=== PATIENT | male | born 1975 | race Caucasian/White ===

== ENCOUNTER 2021-09-23 06:01 | Outpatient (REF) | payer OTHER, SELFPAY ==
[2021-09-23 06:09] LABS: MANUAL DIFF FLAG NO
[2021-09-23 07:52] LABS: Basophils Percent Auto 0.4 % (0-2); Eosinophils Absolute Auto 0.2 X10*3/uL (0.0-0.4); Hematocrit 44.1 % (42.0-52.0); Hemoglobin 14.5 g/dl (14.0-18.0); Imm Gran Abs Auto 0.03 X10*3/uL (0.00-0.03); Imm Gran Pct Auto 0.4 % (0.0-0.4); Lymphocytes Absolute Auto 2.8 X10*3/uL (1.2-4.9); Lymphocytes Percent Auto 34.6 % (20-40); Mean Corpuscular HGB Conc 32.9 g/dl (31.0-36.0); Mean Corpuscular Volume 85.3 fL (80.0-98.0); Mean Platelet Volume 10.5 fL (9.4-12.4); Monocytes Absolute Auto 0.6 X10*3/uL (0.1-1.2); Monocytes Percent Auto 7.9 % (2-11); Neutrophils Absolute Auto 4.3 x10*3/uL (2.0-8.3); Neutrophils Percent Auto 53.7 % (45-73); Platelet Count 276 X10*3/uL (160-400); Red Blood Count 5.17 X10*6/uL (4.60-5.80); Red Cell Distribution Width 13.5 % (11.0-16.0); White Blood Count 7.9 X10*3/uL (4.8-10.8)
[2021-09-23 08:23] LABS: Alanine Aminotransferase 21 U/L (0-40); Albumin Level 4.6 g/dL (3.5-5.0); Alkaline Phosphatase 75 U/L (39-117); Anion Gap 12 (12-20); Aspartate Amino Transferase 18 U/L (5-37); Bilirubin Total 0.8 mg/dL (0.0-1.0); Blood Urea Nitrogen 10 mg/dL (9-16); Calcium 9.5 mg/dL (8.4-10.2); Carbon Dioxide 27 mmol/L (22-29); Chloride 104 mmol/L (96-108); Cholesterol 183 mg/dL; Estimated Glomerular Filt Rate > 60; Glucose Fasting 92 mg/dL (60-99); HDL Cholesterol 41 mg/dL; LDL Cholesterol Calculated 128 mg/dl; Potassium 4.2 mmol/L (3.3-5.1); Sodium 139 mmol/L (135-145); Total Protein 7.4 g/dL (6.5-8.0); Triglycerides 71 mg/dL
== END 2021-09-23 06:02 | disposition home or self-care (01) ==
LOC: HO.LAB 06:01
PROVIDERS: PCP Internal Medicine; Visit Provider Internal Medicine
DX: Z00.00 Encounter for general adult medical examination without abnormal findings (principal)
CPT/HCPCS: 36415; 80053; 80061; 85025

== ENCOUNTER 2022-03-17 10:34 | Outpatient (REF) | payer OTHER, SELFPAY ==
--- NOTE | ~2022-03-17 | CT_ITS ---
EXAMINATION: CT ANGIOGRAM BRAIN, HEAD CLINICAL INFORMATION: Family history of brain aneurysm. COMPARISON: None available TECHNIQUE: Test bolus sequences followed by intravenous administration 70 mL of Omnipaque 350 intravenous contrast. Helical imaging was performed in the axial plane from the skull base to the vertex. Delayed postcontrast imaging of the head was also performed. The data was processed at the nanotechnology engineering technologist workstation for generation of MIP sequences. Three-dimensional volume rendered reformatted images were also generated at an offline 3-D workstation. The degree of stenosis determined by NASCET criteria. This CT examination was performed using dose optimization techniques as appropriate, variously including the following: *Automated exposure control *Adjustment of mA and/or kV according to patient size (this includes techniques or standardized protocols for targeted exams where dose is matched to indication/reason for exam; i.e. extremities or head) *Use of iterative reconstruction technique FINDINGS: The anterior and posterior intracranial arterial circulations are widely patent. No aneurysms and no high flow vascular malformations. There is no pathologic enhancement intracranially. There is no intracranial hemorrhage, hydrocephalus, extra-axial surface collection, midline shift, or other herniation pattern. Calle to white matter differentiation is diffusely maintained without evidence of an evolved acute territorial infarct. The basilar cisterns are preserved. No significant soft tissue abnormality. No acute osseous abnormality. The paranasal sinuses and the mastoid air cells are well aerated. CT/CT angio head IMPRESSION: Unremarkable CTA of the head. No aneurysms.
[2022-03-17] MEDS: iohexoL 350 MG/ML 100 ML INFUS..BTL IV (11:46)
== END 2022-03-17 10:35 | disposition home or self-care (01) ==
LOC: HO.CT 10:34
PROVIDERS: Visit Provider Internal Medicine
DX: Z13.6 Encounter for screening for cardiovascular disorders (principal); Z82.49 Family history of ischemic heart disease and other diseases of the circulatory system
CPT/HCPCS: 70496; Q9967

== ENCOUNTER 2022-03-31 08:28 | Day surgery (SDC) | payer OTHER, SELFPAY ==
--- NOTE | 2022-03-30 13:15 | HO.ANESPROP2 ---
Documented by User: Bertha Francis NP 03/30/22 13:19 HPI - Anesthesia Eval Consult details Narrative: 46yo M for Upper Endoscopy with balloon diliation and Colonoscopy [facility] Past Medical History Medical History (Updated 03/30/22 @ 13:17 by Bertha Francis NP) GERD (gastroesophageal reflux disease) Social History Social History Patient Tobacco Use Status: Never used Tobacco Use of substances other than those prescribed or required for medical reasons: No Are you DNR?: No Advance Directives: No Advance Directives Information Provided: Yes Meds Allergies Allergy/AdvReac Type Severity Reaction Status Date / Time tree nut Allergy Anaphylaxis Verified 03/31/22 08:51 Home Medications Medication Instructions Recorded Confirmed Last Taken Type Zyrtec See Rx Instructions .Route .COMPLEX 03/30/22 03/31/22 Unknown History clonazepam 1 mg tablet 1 tab PO BEDTIME PRN Insomnia 03/30/22 03/30/22 Unknown History omeprazole 40 mg capsule,delayed 1 cap PO DAILY 03/30/22 03/30/22 Unknown History release Exam Exam Date and Time: March 30, [id number] Assessment and Plan Assessment Anesthesia Assessment: Chart Reviewed Documented by User: Mane Mendoza MD 03/31/22 13:23 [facility] Past Medical History Medical History (Updated 03/30/22 @ 13:17 by Bertha Francis NP) GERD (gastroesophageal reflux disease) Functional capacity: independent ambulation Family History Family history of problems with anesthesia: No Surgical History History of Problems with Anesthesia: No Social History Social History Patient Tobacco Use Status: Never used Tobacco Use of substances other than those prescribed or required for medical reasons: No Are you DNR?: No Advance Directives: No Advance Directives Information Provided: Yes Meds Allergies Allergy/AdvReac Type Severity Reaction Status Date / Time tree nut Allergy Anaphylaxis Verified 03/31/22 08:51 Home Medications Medication Instructions Recorded Confirmed Last Taken Type Zyrtec See Rx Instructions .Route .COMPLEX 03/30/22 03/31/22 Unknown History clonazepam 1 mg tablet 1 tab PO BEDTIME PRN Insomnia 03/30/22 03/30/22 Unknown History omeprazole 40 mg capsule,delayed 1 cap PO DAILY 03/30/22 03/30/22 Unknown History release Exam Airway Mallampati Class: III TM Dist: >3cm Neck ROM: Full Loose/Missing/Broken Teeth: Yes (Chipped front upper .) Heart: S1,S2 Lungs: b/l breath sounds Assessment and Plan Assessment Anesthesia Assessment: Anesthesia Plan Discussed Final Anesthetic Review Family History of Problems with Anesthesia: No History of Problems with Anesthesia: No NPO: Yes ASA Class: II Final Preanesthetic Review: Meds/Allgs Chart Reviewed, Consent Obtained/Reviewed and Anes Risks/Benef Reviewed Patient Risk: Intermediate Procedure Risk: Intermediate Anesthetic Plan Anesthetic Plan: MAC: Disposition: Standard PACU
[2022-03-31 08:43] VITALS: BMI 32.5
[2022-03-31 09:30] VITALS: BP 138/98; PULSE 79; RESP 18; TEMP 36.7; O2SAT 96
[2022-03-31] MEDS: Lactated Ringers 1,000 ML 100 ML IVCONT (09:32)
[2022-03-31 12:05] VITALS: BP 113/79; PULSE 89; RESP 17; TEMP 37.4; O2SAT 96
--- NOTE | 2022-03-31 12:06 | P.BOP_ITS ---
Brief Operative Note Date of Service: 03/31/22 Pre-op diagnosis: Dysphagia, Screening Post-op diagnosis: other (Colon polyps, Mild distal esophageal stricture, Small hiatal hernia, R/O EoE) Procedure: EGD with Balloon dilation and biopsies, Colonoscopy to the cecum with bx/removal of polyps x 2 and hot snare polypectomy of rectal polyp Surgeon: Lalit Simms Anesthesia: MAC Was an Subway Conductor used for this Procedure?: No Estimated blood loss (mL): 2.0 Pathology: other (A. Esophagus at 25cm B. Ascending colon polyp C. Transverse colon polyp D. Rectal polyp) Condition: stable Disposition: PACU
[2022-03-31 12:20] VITALS: BP 125/93; PULSE 83; RESP 18; TEMP 36.8; O2SAT 98
--- NOTE | 2022-03-31 23:28 | OP_ITS ---
SURGEON: Lalit Simms MD INDICATIONS: The patient presents for evaluation of dysphagia and colorectal cancer screening. Full consent has been obtained from him for this, including risks of bleeding and perforation. PREOPERATIVE DIAGNOSIS: POSTOPERATIVE DIAGNOSIS: PROCEDURE PERFORMED: Esophagogastroduodenoscopy with balloon dilation of gastroesophageal junction and biopsies and colonoscopy to the cecum and terminal ileum with biopsy and removal of polyps, and hot snare polypectomy. ESTIMATED BLOOD LOSS: COMPLICATIONS: ANESTHESIA: Monitored anesthesia care. ASSISTANTS: SPECIMENS: PREOPERATIVE DIAGNOSES: Gastroesophageal reflux, dysphagia, colorectal cancer screening. POSTOPERATIVE DIAGNOSES: Gastroesophageal reflux, dysphagia, colorectal cancer screening, mild distal esophageal stricture, small hiatal hernia, rule out eosinophilic esophagitis, colon polyps, internal hemorrhoids. PROCEDURE IN DETAIL: The patient was placed in the left lateral decubitus position. The Olympus video gastroscope was passed in the posterior oropharynx and upper esophagus under direct vision. The scope was passed slowly to the distal esophagus. The gastroesophageal junction appeared at 38 cm. With insufflation of air, there appeared to be a mild fibrotic stricture but this was without any significant narrowing of the lumen and allowed easy passage of the scope into the stomach. There was a small hiatal hernia. The scope was advanced to the pylorus and the duodenum was cannulated to the descending portion. The duodenum including the bulb appeared normal without mass or ulceration. The scope was withdrawn back into the stomach. The gastric antrum and body appeared normal with good peristalsis. The scope was retroflexed visualizing the proximal stomach carefully, which appeared normal, without any mass or ulceration. The scope was straightened and withdrawn back to the esophagus. Given his symptomatology, I did use a [employer] incremental dilating balloon to dilate the gastroesophageal junction from 18 mm to 19 mm to 20 mm at the recommended pressure for between 30 and 60 seconds each. Post dilation, there appeared to be a small amount of heme noted, but no appreciable disruption of the gastroesophageal junction. The scope was withdrawn through the remainder of the esophagus. I did not visualize any sign of proximal esophageal rings nor other abnormalities. Biopsies were obtained between 20 and 25 cm. The scope was withdrawn from the patient. He was turned around for the colonoscopy. The digital rectal exam revealed no abnormalities. The Olympus video pediatric colonoscope was entered into the rectum and advanced easily to the cecum. Once in the cecum, I did identify normal-appearing cecal pouch to the appendiceal orifice and normal-appearing ileocecal valve. The terminal ileum was cannulated and appeared normal. The scope was withdrawn back into the colon. The entire cecum and ileocecal valve appeared normal. The scope was slowly withdrawn assessing all mucosal surfaces carefully. Preparation was excellent. In the proximal ascending colon and transverse colon were flat, less than 5 mm polyps which were each biopsied and completely removed with cold biopsy forceps. In the rectum, there was an approximately 8 to 10 mm polyp which was removed by hot snare polypectomy and recovered by suction. The polypectomy site appeared clean, without any sign of residual polyp nor bleeding. I did not visualize any other polyps, colitis or angiodysplasia. In the rectum, scope was retroflexed visualizing internal hemorrhoids, but no other pathology. The rectal mucosa appeared normal. The scope was straightened and withdrawn from the patient. He tolerated both procedures well and was returned to recovery area in stable condition. IMPRESSION: 1. Colon polyps. 2. Internal hemorrhoids. 3. Small hiatal hernia, mild distal esophageal stricture, status post balloon dilation. 4. Rule out eosinophilic esophagitis. PLAN: The results of the biopsies will be checked. At this point, I do not see any evidence of esophageal rings in the proximal esophagus and therefore I will have him stop his budesonide as it does not appear that he has eosinophilic esophagitis. He reports that it was not helping him anyway. He will continue his omeprazole 40 mg daily. If his dysphagia significantly improves, we can observe things on the omeprazole. If he continues to have significant dysphagia, I will then recommend further workup with esophageal motility studies and barium swallow. I would recommend a repeat colonoscopy in 5 years. He was advised not to use any aspirin or NSAIDs for 1 week. He will see me in the office for followup visit. MD ZAC Michael/JOSE / [phone] LORENA
== END 2022-03-31 12:53 | disposition home or self-care (01) ==
PROVIDERS: PCP Internal Medicine; Visit Provider Internal Medicine
PROC: (CPT 45385; principal; 2022-03-31 09:50)
DX: Z12.11 Encounter for screening for malignant neoplasm of colon (principal); D12.8 Benign neoplasm of rectum; K63.5 Polyp of colon; K64.8 Other hemorrhoids; K22.2 Esophageal obstruction; R13.10 Dysphagia, unspecified; K44.9 Diaphragmatic hernia without obstruction or gangrene; K21.9 Gastro-esophageal reflux disease without esophagitis; Z79.899 Other long term (current) drug therapy
CPT/HCPCS: 45385; 45380; 43249; 43239; 88305; C1726; J2250; J3010

== ENCOUNTER 2023-02-06 12:45 | Outpatient (AMB) | payer OTHER, SELFPAY ==
--- NOTE | 2023-02-06 13:12 | A.OFFVIS_ITS ---
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 Perry. He has a past medical history of GERD. He presents to the office today for a vasectomy ev aluation. In discussion with the patient today reports to be doing and feeling well. Vasectomy evaluation The patient presents for vasectomy consultation.? He is currently . He has fathered -?1 child, with a single partner. The youngest child is - 7 years old. His partner is aware and permissive for a vasectomy. Current form of control is rhythm and plan B. 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 The vasectomy may be complicated due to a history of no complicating issues. Patient education has been provided via AUA video, via printed information, risks of failure, recovery time, bruising and potential pain syndrome have been stressed Discussion today focused on the presence of vasectomy and the risks, benefits an d alternatives that are available. Vasectomy as intended as a permanent form of control. Printed information and literature was provided to the patient. Overall there is a one in 2500 failure rate. This can occur at any time after vasectomy. Risks were discussed highlighting hematoma, spermatocele, epididymal congestion, development of sperm antibodies, and development of chronic pain estimated between 1-5%. The procedure was reviewed in detail. Anatomical diagrams of the male genitalia were used to explain the location of the vas deferens. The vas deferens will be transected, the proximal end will be cauterized, a metal clip would be applied to separate the 2 vas deferens ends. It was explained the procedure will be done in the office and takes approximately 10-15 minutes. Less common problems that arise with vasectomy include hematoma, bleeding, allergic reaction to anesthetic, epididymal infection, epididymal congestion, scrotal discomfort, spermatic leak, spermatic granuloma and the possibility of antisperm antibodies. He understands these risks and wishes to proceed. Consent was signed at the office today. He also understands that it takes 12 weeks for sperm to fully clear the system. He will need to provide a semen sample at 12 weeks and if this is not clear a 2nd sample at 16 weeks. Medical clearance to stop using protection will only be provided if he satisfies published criteria for sperm clearance. [facility] Medical History GERD (gastroesophageal reflux disease) Social History Patient Tobacco Use Status: Never used Tobacco Review of Systems Const All systems reviewed & are unremarkable except as noted in HPI and below Physical Exam Const General: cooperative, healthy appearing, comfortable, no acute distress, well developed, alert and awake Orientation/consciousness: patient oriented x3 Limitations: no limitations HEENT Head: Yes normal to inspection, Yes normocephalic and Yes atraumatic Ears: hearing grossly normal bilaterally Eyes General: appearance normal, both eyes and all related structures Neck Neck: Yes normal visual inspection and Yes trachea midline Chest Chest palpation & inspection: normal inspection of the chest Resp Effort & Inspection: normal respiratory effort and able to speak in complete sentences Cardio Rate: regular rate GI Inspection: Yes normal to inspection General: Yes no CVA tenderness Back/Spine/Pelvis Back: no CVA tenderness Skin General skin exam: no rashes or lesions noted Neuro General: patient oriented x3 Extrem General: Yes normal to inspection Psych Appearance: grossly normal and well kempt Mental Status: mental status grossly normal Speech and movement: Normal speech and movement present and Clear speech present Affect: normal affect Attitude: cooperative Thought process: Normal thought process present Thought content: Normal thought content present Results AMB Urinalysis, Automated UA Leukoctes 0 Veronica/uL Last Edit by [employer] Jonathon on 02/06/23 13:25 UA Nitrite Negative Last Edit by [employer] Jonathon on 02/06/23 13:25 UA Urobilinogen 0.2 mg/dL Last Edit by [employer] Holt on 02/06/23 13:25 UA Protein 0 mg/dL Last Edit by [employer] Holt on 02/06/23 13:25 UA pH 6.0 Last Edit by Mónica Holt on 02/06/23 13:25 UA Blood 0 Gabo/uL Last Edit by Mónica Talamantescarmen on 02/06/23 13:25 UA Specific [place] 1.005 Last Edit by Mónica Talamantescarmen on 02/06/23 13:25 UA Ketone Negative Last Edit by Nathanjeffryevens Talamantescarmen on 02/06/23 13:25 UA Bilirubin 0 mg/dL Last Edit by Mónica Vinitacarmen on 02/06/23 13:25 UA Glucose 0 mg/dL Last Edit by Mónica Vinitacarmen on 02/06/23 13:25 Results Reviewed Results Reviewed: Laboratory Last Values Urine pH (Auto) 6.0 02/06/23 13:21 Specific [place] (Auto) 1.005 02/06/23 13:21 Urine Protein (Auto) 0 mg/dL 02/06/23 13:21 Glucose (UA)(Auto) 0 mg/dL 02/06/23 13:21 Urine Ketones (Auto) Negative 02/06/23 13:21 Urine Blood (Auto) 0 Gabo/uL 02/06/23 13:21 Urine Nitrite (Auto) Negative 02/06/23 13:21 Urine Bilirubin (Auto) 0 mg/dL 02/06/23 13:21 Urine Urobilinogen (Auto) 0.2 mg/dL 02/06/23 13:21 Leukocyte Esterase (Auto) 0 Veronica/uL 02/06/23 13:21 Assessment & Plan Assessment & Plan (1) Anxiety about health: Code(s): R45.89 - Other symptoms and signs involving emotional state (2) Vasectomy evaluation: Code(s): Z30.09 - Encounter for other general counseling and advice on contraception Plan In office urinalysis results reviewed with the patient today; as noted above. Discussed vasectomy at length. All questions were answered. Patient otherwise denies any bothersome urinary issues at this time. Prescriptions provided. Will schedule for vasectomy as discussed. Follow-up per Dr. Lara's order; or sooner with any issues, concerns, and or questions. Orders: Orders AMB Urinalysis Automated 02/06/23 Z13.9 - Encounter for screening, unspecified Patient Instructions: The patient had an opportunity to ask questions regarding the treatment plan. All questions were answered. Physical exam, labs, and imaging were discussed and reviewed in detail. As well as risks, benefits, and discussion of treatment choices. No major barriers to understanding were identified. The patient expressed understanding and agreement with the above treatment plan. The patient was made aware they should contact our office by phone for worsening of their current condition, the appearance of new symptoms, or with any questions or concerns. Compliance is encouraged with any medications and follow up testing that is ordered. It is a privilege to be allowed the opportunity to participate in? your urological care.? Again, if you have any questions or concerns If you have any questions or concerns please do not hesitate to contact me. The office is [phone]. This note is constructed using voice recognition software. While every effort has been made to ensure accuracy peer counselor errors may have been included. Yours sincerely, CLARI Lorenzo Coding Level of Care Code New Pt Level 4 (46604) Diagnoses Anxiety about health R45.89 Vasectomy evaluation Z30.09
== END 2023-02-06 13:45 | disposition home or self-care (01) ==
PROVIDERS: PCP Internal Medicine; Visit Provider Nurse Practitioner Family
DX: R45.89 Other symptoms and signs involving emotional state (principal); Z30.09 Encounter for other general counseling and advice on contraception
CPT/HCPCS: 99204

== ENCOUNTER → 2023-02-06 12:45 | Outpatient (BNVA) | payer OTHER, SELFPAY | PROVIDERS: PCP Internal Medicine; Visit Provider Nurse Practitioner Family | DX: Z30.09 Encounter for other general counseling and advice on contraception (principal); R45.89 Other symptoms and signs involving emotional state | CPT/HCPCS: 81003 ==

== ENCOUNTER 2023-03-30 14:39 | Outpatient (AMB) | payer OTHER, SELFPAY ==
--- NOTE | 2023-03-30 15:08 | MHC.OFFVIS ---
Intake Intake Visit Reasons: vasectomy Intake Note: Patient is present for vasectomy Allergies tree nut Allergy (Verified 02/06/23 13:28) Anaphylaxis HPI HPI Comments History of Present Illness Details Nav is a pleasant 47-year-old male patient of Dr. Perry. He has a past medical history of GERD. He presents to the office today for a vasectomy evaluation. In discussion with the patient today reports to be doing and feeling well. Vasectomy procedure The patient presents for vasectomy procedure.? He is currently . He has fathered -?1 child, with a single partner. The youngest child is - 7 years old. His partner is aware and permissive for a vasectomy. Current form of control is rhythm and plan B. 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 COUNTS INCLUDE 234 BEDS AT THE [facility] Medical History GERD (gastroesophageal reflux disease) Social History Patient Tobacco Use Status: Never used Tobacco Review of Systems Const Denies chills and Denies fever(s) Card Reports no additional complaints and Denies syncope Resp Denies cough GI Denies abdominal pain and Denies heartburn Reports as per HPI and Denies change in libido Neuro Denies syncope Psych Denies change in libido Endo Denies change in libido Physical Exam Const General: cooperative, healthy appearing, comfortable and no acute distress Orientation/consciousness: patient oriented x3 HEENT Face and sinus: Yes normal facial exam Mouth: moist mucous membranes Neck Neck: Yes normal visual inspection, Yes full ROM and Yes trachea midline Chest Chest palpation & inspection: normal inspection of the chest Resp Effort & Inspection: normal respiratory effort, able to speak in complete sentences and no respiratory distress GI Inspection: Yes normal to inspection Back/Spine/Pelvis Cervical Spine: normal cervical lordosis Thoracic/Lumbar Spine: thoracic and lumbar spine normal to inspection Skin General skin exam: no rashes or lesions noted Neuro General: patient oriented x3, gait normal, tone normal and moves all extremities Extrem General: Yes normal to inspection and Yes capillary refill normal Office Procedures Vasectomy Details: Preoperative diagnosis: Anxiety regarding Postoperative diagnosis: Anxiety regarding unplanned Procedure: Bilateral vasectomy Informed consent had been completed. Preoperative and postoperative instructions were provided to the patient. The patient has transportation to home identified at the completion of the procedure. Anti-anxiolytic prescription medication had been taken after consent verification and all questions answered. Tylenol with Codeine pain medication was also provided. The penis was elevated using a rubber band that was attached to the patient's shirt. Both vasa were palpated through the skin using a 3 finger technique and the penoscrotal junction was prepped with Betadine. After Betadine application the left vas was elevated using a 3 finger grasping technique. 1% lidocaine was used to create a subdermal bubble. Approximately 2 minutes were allowed to for local anesthetic uptake. Further anesthetic was then advanced using the 25-gauge needle along the vasa in a proximal fashion. Using the sharp spreading instrument the scrotum was spread longitudinally in line with the vasa. The vasa was elevated from the scrotum using a ring clamp. Care was taken to elevate the superior portion of the vas. Using the sharp spreading instrument the vasal sheath was removed from the covering of this segment of the vas. A fresh knife blade was used to partially divide the vasal sheath and to strip the vasal sheath from the vasa. The vasa was grasped with an Addson forcep and elevated from the incision. The ring clamp was placed so it grasped the elevated vas. The vasal sheath was dissected from the vaas in a proximal and distal fashion. This allowed the blood vessels of the vasa to retract from the vasa. Using the battery-powered cautery a partial division was made in the proximal vas. The battery-powered cautery was used to cauterize the proximal end of the vas. This was then cut and allowed to retract into the vasal sheath. A clip was placed on the vasal sheath to create a fascial interposition. The distal portion of the vas was then cut in order to obtain a segment of vasa. The vasa were allowed to retract back into the scrotum. A small snap was then used to approximate the skin edges. A similar procedure was repeated on the right side. He tolerated the procedure well. Triple antibiotic was applied. A gauze was applied. An ice pack was applied to assist with minimizing swelling. Postoperative instructions were confirmed. He understands the need to continue to use control methods. A semen sample should be brought for inspection under the microscope in 10-12 weeks. CPT 90130 Vasectomy performed by: Dallas Lara Informed consent given: Yes Informed consent signed: Yes Time out checklist: patient, procedure, site marked/identified, positioning of patient, supplies available, allergies confirmed and team agrees on procedure Anesthetic used: other Specimens: vas segments not sent to pathology 47813 - Vasectomy Assessment & Plan Assessment & Plan (1) Anxiety about health: Code(s): R45.89 - Other symptoms and signs involving emotional state Plan Twelve week follow-up semen analysis Patient Instructions: Imaging studies, laboratory and physical exam results were discussed and reviewed in detail. No major barriers to patient understanding were identified. An opportunity to ask questions regarding the treatment plan was provided. All questions were answered. The patient expressed understanding and agreement with the above treatment plan. The patient is aware they should contact our office by phone for worsening of their current condition or the appearance of new urologic symptoms. Compliance is encouraged with any medications and followup testing that is ordered. It is a privilege to participate in the urologic care of your patient. If you have any questions or concerns regarding treatment for the above conditions, or other urologic issues, please do not hesitate to contact me. The office telephone contact is [phone]. This note is constructed using voice recognition software. While every effort has been made to ensure accuracy mix maker errors may have been included. Yours sincerely, Dr Dallas Lara MD, [facility] - Urology Providers of Expert, Compassionate Care for the Genitourinary System Coding Level of Care Code Procedure Only Diagnoses Anxiety about health R45.89 CPT Codes Office Procedure - CPT: 49581 - Vasectomy ([id number])
== END 2023-03-30 16:19 | disposition home or self-care (01) ==
PROVIDERS: PCP Internal Medicine; Visit Provider Urology
DX: Z30.2 Encounter for sterilization (principal)
CPT/HCPCS: 55250

== ENCOUNTER → 2023-03-30 14:39 | Outpatient (BNVA) | payer OTHER, SELFPAY | PROVIDERS: PCP Internal Medicine; Visit Provider Urology | DX: Z30.2 Encounter for sterilization (principal); F41.8 Other specified anxiety disorders | CPT/HCPCS: 55250 ==

== ENCOUNTER 2023-06-29 15:00 | Outpatient (AMB) | payer OTHER, SELFPAY ==
--- NOTE | 2023-06-29 15:25 | MHC.OFFVIS ---
Intake Visit Reasons: 3m semen analysis Allergies tree nut Allergy (Verified 02/06/23 13:28) Anaphylaxis HPI Comments Details: Nav is a pleasant 47-year-old male patient of Dr. Perry. He has a past medical history of GERD. He presents to the office today for a vasectomy evaluation. In discussion with the patient today reports to be doing and feeling well. Telemedicine Evaluation 15 min Consultation Doximity Anu Video No sperm seen on high-powered field evaluation of sperm sample Minimal issues following procedure P.r.n. follow-up Vasectomy follow-up The patient presents for vasectomy follow-up.? He is currently . He has fathered -?1 child, with a single partner. The youngest child is - 7 years old. His partner is aware and permissive for a vasectomy. Current form of control is rhythm and plan B. 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 [facility] Medical History GERD (gastroesophageal reflux disease) Social History Patient Tobacco Use Status: Never used Tobacco Review of Systems Const All systems reviewed & are unremarkable except as noted in HPI and below Reports no additional complaints Resp Reports no additional complaints GI Reports no additional complaints Reports as per HPI Musc Reports no additional complaints Physical Exam Telemedicine evaluation Appropriate responses Regular breathing rate and rhythm HEENT Head: Yes normal to inspection Ears: hearing grossly normal bilaterally Eyes General: appearance normal, both eyes and all related structures Neck Neck: Yes normal visual inspection Chest Chest palpation & inspection: normal inspection of the chest Resp Effort & Inspection: normal respiratory effort and able to speak in complete sentences Telehealth Telehealth Location of provider rendering services: practice address Location of patient: address on file Patient Identification confirmed using: Name, : Yes Telehealth method: video Patient verbally consented to treatment: Yes Patient verbally consented to billing insurance company: Yes Patient informed of any privacy concerns related to visit: Yes Minutes spent on Phone/Video with Pt.: 15 Assessment & Plan Assessment & Plan (1) Anxiety about health: Code(s): R45.89 - Other symptoms and signs involving emotional state Category: Medical Plan P.r.n. follow-up Patient Instructions: Imaging studies, laboratory and physical exam results were discussed and reviewed in detail. No major barriers to patient understanding were identified. An opportunity to ask questions regarding the treatment plan was provided. All questions were answered. The patient expressed understanding and agreement with the above treatment plan. The patient is aware they should contact our office by phone for worsening of their current condition or the appearance of new urologic symptoms. Compliance is encouraged with any medications and followup testing that is ordered. It is a privilege to participate in the urologic care of your patient. If you have any questions or concerns regarding treatment for the above conditions, or other urologic issues, please do not hesitate to contact me. The office telephone contact is [phone]. This note is constructed using voice recognition software. While every effort has been made to ensure accuracy body liner errors may have been included. Yours sincerely, Dr Dallas Lara MD, [facility] - Urology Providers of Expert, Compassionate Care for the Genitourinary System Coding Level of Care Code Tele Est Pt Level 3 (14839) Diagnoses Anxiety about health R45.89
== END 2023-06-29 16:51 ==
PROVIDERS: PCP Internal Medicine; Visit Provider Urology
DX: R45.89 Other symptoms and signs involving emotional state (principal)
CPT/HCPCS: 99213

== ENCOUNTER → 2023-06-29 15:00 | Outpatient (BNVA) | payer OTHER, SELFPAY | PROVIDERS: PCP Internal Medicine; Visit Provider Urology ==

== ENCOUNTER 2023-09-19 21:59 | Emergency (ER) | payer OTHER, SELFPAY ==
[2023-09-19 22:02] VITALS: BP 159/96; PULSE 91; RESP 20; TEMP 36.7; O2SAT 98; BMI 34.3
[2023-09-19] MEDS: dexAMETHasone sod phosphate 10 MG/ML VIAL IVPUSH (22:20)
[2023-09-19] MEDS: Famotidine/PF 20 MG/2 ML VIAL IVPUSH (22:20)
[2023-09-19] MEDS: diphenhydrAMINE HCL 50 MG/ML VIAL 25 MG IVPUSH (22:24)
[2023-09-19 22:26] VITALS: BP 150/96; PULSE 81; RESP 15; O2SAT 98
[2023-09-19] MEDS: Albuterol Sulfate (0.083%) 2.5 MG/3 ML VIAL.NEB 5 MG INHALE (22:44)
--- NOTE | 2023-09-19 22:44 | ED_ITS ---
HPI - Allergic Reaction General Chief complaint: Allergic Reaction Stated complaint: anaphylactic reaction earlier, rash and diff breat Time Seen by Provider: 09/19/23 22:18 Source: patient Mode of arrival: ambulatory Limitations: no limitations History of Present Illness ED Provider: cheryl ZAMORA narrative: Patient's history of weight like reaction tree nuts does not remember any food which had tree nuts approximately at 19:00 patient was having dinner and started noticing hives all over the body with nausea and vomiting patient took 2 Benadryl but vomited after that at 20:00 EpiPen as he was feeling very sick chest tightness difficult to speak when arrival. Was feeling slightly better with still feels body on fire with diffuse hives Related Data Home Medications ?Medication ?Instructions ?Recorded ?Confirmed Zyrtec See Rx Instructions .Route .COMPLEX 03/30/22 03/31/22 clonazepam 1 mg tablet 1 tab PO BEDTIME PRN Insomnia 03/30/22 03/30/22 omeprazole 40 mg capsule,delayed 1 cap PO DAILY 03/30/22 03/30/22 release Previous Rx's ?Medication ?Instructions ?Recorded acetaminophen 300 mg-codeine 30 mg 1 tab PO Q8H 3 days #9 tabs 02/07/23 tablet diazepam 2 mg tablet 2 mg PO BID PRN anxiety 1 day #2 02/07/23 tabs prednisone 20 mg tablet 40 mg (2 x 20 mg) PO DAILY #10 tabs 09/20/23 Allergies Allergy/AdvReac Type Severity Reaction Status Date / Time tree nut Allergy Anaphylaxis Verified 09/19/23 22:09 Review of Systems Review of Systems: Yes all other systems are reviewed and are negative PMFSH Past Medical History Medical History GERD (gastroesophageal reflux disease) Social History Social History Unable to assess alcohol history related to: Unknown Patient Tobacco Use Status: Never used Tobacco Smoked in Last 30 Days: No Use of substances other than those prescribed or required for medical reasons: No Advance Directives: No Advance Directives Information Provided: No Do you have a plan to hurt others: No Plan Physical Exam ED Vital Signs: Vital Signs - 24 hr 09/19/23 22:02 09/19/23 22:26 09/19/23 22:47 Temperature 98.1 F Pulse Rate 91 81 80 Respiratory Rate 20 15 18 Blood Pressure 159/96 H 150/96 H Pulse Oximetry 98 98 Oxygen Delivery Method Room Air Room Air 09/19/23 23:40 Temperature Pulse Rate 94 Respiratory Rate 17 Blood Pressure 152/88 H Pulse Oximetry 95 Oxygen Delivery Method Room Air BMI result Body Mass Index 34.3 Appearance: Alert. Oriented X3. No acute distress. Eyes: PERRLA, No Nystagmus ENT: Pharynx normal. Oral Mucosa moist no stridor uvula normal Neck: Normal inspection. Neck supple. CVS: Normal heart rate and rhythm. Pulses normal. Respiratory: No respiratory distress. Equal air entry bilateral, no wheezing/rales/rhonchi Abdomen: Soft and nontender. Bowel sounds are present, Skin: Skin warm and dry. Hives all over the body Extremities: No lower extremity edema. No calf tenderness Neuro: Oriented X 3. Medications Administered Discontinued Medications Generic Name Dose Route Start Last Admin Trade Name Freq PRN Reason Stop Dose Admin Albuterol Sulfate 5 mg 09/19/23 22:22 09/19/23 22:44 Albuterol Sulfate (0.083%) 2.5 Mg/3 Ml Vial.Neb INHALE 09/19/23 22:23 5 mg ONCE ONE Administration Dexamethasone Sodium Phosphate 10 mg 09/19/23 22:18 09/19/23 22:20 Dexamethasone Sod Phosphate 10 Mg/Ml Vial IVPUSH 09/19/23 22:19 10 mg ONCE ONE Administration Diphenhydramine HCl 25 mg 09/19/23 22:22 09/19/23 22:24 Diphenhydramine Hcl 50 Mg/Ml Vial IVPUSH 09/19/23 22:23 25 mg ONCE ONE Administration Famotidine 20 mg 09/19/23 22:18 09/19/23 22:20 Famotidine/Pf 20 Mg/2 Ml Vial IVPUSH 09/19/23 22:19 20 mg ONCE ONE Administration Medical Decision Making Medical Decision Making [facility] Narrative: Patient with anaphylactic reaction to tree nuts improved after taking EpiPen at home was given nebulizing treatment Pepcid Benadryl IV and Decadron in the ER patient feeling much better now rash has improved denies any shortness of breath or throat tightening discharge patient home Discharge Plan Discharge Clinical Impression: Anaphylaxis Patient Disposition: Home, Self-Care Instructions: Food Allergy (ED) Additional Instructions: Be careful when you eat outside food check for the ingredients Take Benadryl 1-2 tablets every 6 hours as needed for rash If rash continues tomorrow start on prednisone as prescribed Use EpiPen as needed for severe reaction Prescriptions: New prednisone 20 mg tablet 40 mg PO DAILY Qty: 10 0RF No Action acetaminophen-codeine 300-30 mg tablet 1 tab PO Q8H 3 Days Qty: 9 0RF diazepam 2 mg tablet 2 mg PO BID PRN (Reason: anxiety) 1 Days Qty: 2 0RF Rx Instructions: Take medication after arrival at office clonazepam 1 mg tablet 1 tab PO BEDTIME PRN (Reason: Insomnia) omeprazole 40 mg capsule,delayed release(DR/EC) 1 cap PO DAILY Zyrtec See Rx Instructions .ROUTE .COMPLEX Rx Instructions: 10 mg daily Print Language: Tajik
[2023-09-19 22:47] VITALS: PULSE 80; RESP 18; O2SAT 97
[2023-09-19 23:40] VITALS: BP 152/88; PULSE 94; RESP 17; O2SAT 95
--- NOTE | 2023-09-19 23:42 | PC.NURSE ---
pt reports relief of symptoms, breathing, and hives.
[2023-09-20 00:17] VITALS: BP 152/88; PULSE 94; RESP 17; TEMP 36.7; O2SAT 95
== END 2023-09-20 00:18 | disposition home or self-care (01) ==
PROVIDERS: Emergency Provider Internal Medicine; PCP Internal Medicine
DX: T78.05XA Anaphylactic reaction due to tree nuts and seeds, initial encounter (principal); X58.XXXA Exposure to other specified factors, initial encounter; L50.9 Urticaria, unspecified
CPT/HCPCS: 94640; 96374; 96375; 99284; J1100; J1200

== ENCOUNTER 2024-01-16 13:58 | Outpatient (REF) | payer OTHER, SELFPAY ==
--- NOTE | ~2024-01-16 | XR_ITS ---
EXAMINATION: XR CHEST CLINICAL INFORMATION: Cough COMPARISON: March 2009. TECHNIQUE: 2 views of the chest were obtained. FINDINGS: No dominant airspace consolidation or pneumothorax. Pulmonary vascularity and hilar regions appear to be stable. Minimal linear atelectatic change toward the peripheral left base. The pleural surfaces appear to be clear. Small upper thoracic spondylitic changes observed. XR/XR chest 2V IMPRESSION: Minimal linear atelectatic change in the peripheral left base. No dominant consolidation or effusion. Electronically signed by: Lucas Ibarra MD 01/16/2024 04:22 PM RIKY
== END 2024-01-16 13:59 | disposition home or self-care (01) ==
LOC: HO.XRAY 13:58
PROVIDERS: PCP Internal Medicine; Visit Provider Internal Medicine
DX: R05.9 Cough, unspecified (principal)
CPT/HCPCS: 71046

== ENCOUNTER 2024-06-16 13:30 | Outpatient (AMB) | payer OTHER, SELFPAY ==
[2024-06-16 13:39] VITALS: BP 136/90; PULSE 85; TEMP 36.2; O2SAT 96; BMI 35.3
--- NOTE | 2024-06-16 13:39 | A.OFFPC_ITS ---
Vital Signs 06/16/24 13:39 06/16/24 14:03 Height 6 ft Weight 260 lb BMI 35.3 BP 136/90 H 132/80 Blood Pressure Location Lt brachial Lt brachial Position Sitting Sitting Pulse 85 Pulse Source Pulse Oximeter Temp 97.1 F Temp Source Temporal Artery Scan Pulse Oximetry (%) 96 Oxygen Delivery Method Room Air Intake Visit Reasons: establish care Allergies tree nut Allergy (Verified 06/16/24 13:42) Anaphylaxis Medication List - Last Reconciled 06/16/24 by Bianka Reed MD clonazepam 1 tab PO BEDTIME PRN fluticasone propion-salmeterol 100-50 mcg/dose (Wixela Inhub) 1 inh inhalation BID fluticasone propionate 50 mcg/actuation 1 spray intranasal BID montelukast (Singulair) 10 mg PO BEDTIME omeprazole 1 cap PO DAILY Tobacco use date assessed: 06/16/24 Dental Screening Dental Screen Date: 06/16/24 Did you have a dental visit in the last 12 months?: Yes Did you have a dental problem in the last 6 months where you did not have access to dental care?: No Was dental information given to patient?: Patient has dentist [facility] Medical History (Updated 06/16/24 @ 14:09 by Bianka Reed MD) Esophageal stricture Vasectomy evaluation GERD (gastroesophageal reflux disease) Surgical History (Updated 06/16/24 @ 13:44 by Nakia Shahid CMA) No pertinent past surgical history Family History (Updated 06/16/24 @ 14:10 by Bianka Reed MD) Father Skin cancer Diabetes Maternal Grandfather Myocardial infarct Other Substance abuse Social History (Updated 06/16/24 @ 13:44 by Nakia Shahid CMA) Household Members: Spouse and Children Housing: House Alcohol intake: never Patient Tobacco Use Status: Never used Tobacco e-Cigarette/Vaping Use: Never Used service: No Current occupational status: employed Current occupation: [employer] Cognitive needs: No Hearing needs: No Vision needs: Yes Questionnaire PHQ-9 Over the last 2 weeks, how often have you been bothered by any of the following problems? 1. Little interest or pleasure in doing things: not at all 2. Feeling down, depressed, or hopeless: not at all 3. Trouble falling or staying asleep, or sleeping too much: not at all 4. Feeling tired or having little energy: not at all 5. Poor appetite or overeating: not at all 6. Feeling bad about yourself - or that you are a failure or have let yourself or your family down: not at all 7. Trouble concentrating on things, such as reading the newspaper or watching television: not at all 8. Moving or speaking so slowly that other people could have noticed. Or the opposite - being so fidgety or restless that you have been moving around a lot more than usual: not at all 9. Thoughts that you would be better off or of hurting yourself in some way: not at all Total score: 0 Depression Screening Interpretation: Negative Depression Screening Done: Yes 03739 - PHQ-9 Billing: Yes Source: Developed by Drs. Lalit Belcher, Sumaya Finn, Danial Dela Cruz and colleagues, with an educational juan a from [employer]. Thrive Questionnaire Date Thrive assessed: 06/09/24 I am a: Patient What is your living situation today?: I have a steady place to live Within the past 12 months, did the food you bought not last and you didn't have the money to get more?: Never true Within the past 12 months, did you worry whether your food would run out before you got money to buy more?: Never true Do you have trouble paying for medicines?: No Do you have trouble getting transportation to medical appointments?: No Do you have trouble paying your heating and electricity bill?: No Do you have trouble taking care of your child, family member or friend?: No Do you have trouble with day-to-day activities such as bathing, preparing meals, shopping, managing finances, etc.?: No Are you currently unemployed and looking for a job?: No Are you interested in more education?: No THRIVE Score: 0 AUDIT C Alcohol Use Questionnaire (AUDIT-C) 1. How often do you have a drink containing alcohol?: Never 3. How often do you have six or more drinks on one occasion?: Never Total Score: 0 ANNAMARIE-7 AMB Questionnaire ANNAMARIE-7 Date ANNAMARIE - 7 assessed: 06/16/24 Feeling nervous, anxious, or on edge: 0 = Not at all Not being able to stop or control worryin = Not at all Worrying too much about different things: 0 = Not at all Trouble relaxin = Not at all Being so restless that it is hard to sit still: 0 = Not at all Becoming easily annoyed or irritable: 0 = Not at all Feeling afraid as if something awful might happen: 0 = Not at all Total ANNAMARIE-7 score (0-4 normal; 5-9 mild; 10-14 moderate; 15-21 severe): 0 Source: Developed by Drs. Lalit Belcher, Sumaya Finn, Danial Dela Cruz and colleagues, with an educational juan a from [employer]. ANNAMARIE-7 Assessment Billing ANNAMARIE-7 Assessment Tool: ANNAMARIE-7 Assessment 32804 Physical exam (Primary Care) Vital Signs: Last Vital Signs Temp 97.1 F 06/16/24 13:39 Pulse 85 06/16/24 13:39 BP 132/80 06/16/24 14:03 Pulse Ox 96 06/16/24 13:39 Oxygen Delivery Method Room Air 06/16/24 13:39 BMI result Body Mass Index 35.3 Tobacco/Smoking Status: Tobacco use Status Tobacco use date assessed 06/16/24 06/16/24 13:47 Patient Tobacco Use Status Never used Tobacco 06/16/24 13:47 e-Cigarette/Vaping Use Never Used 06/16/24 13:47 PHQ-9: PHQ-9 Score PHQ-9: Total score 0 06/16/24 14:08 Depression Screening Interpretation: Negative Thrive Assessment: Date of Thrive Assessment Date Thrive assessed 06/09/24 06/16/24 13:47 Coding Level of Care Code New Pt Level 4 (25145) Diagnoses Obesity (BMI 30-39.9) E66.9 Impaired glucose tolerance R73.02 Generalized anxiety disorder F41.1 GERD (gastroesophageal reflux disease) K21.9 Additional Codes ANNAMARIE-7 Assessment Billing - ANNAMARIE-7 Assessment Tool: ANNAMARIE-7 Assessment 54597 ([id number]) PHQ-9 - 62129 - PHQ-9 Billing: Yes ([id number]) Assessment & Plan Assessment & Plan (1) Obesity (BMI 30-39.9): Code(s): E66.9 - Obesity, unspecified Category: Medical (2) Impaired glucose tolerance: Code(s): R73.02 - Impaired glucose tolerance (oral) Category: Medical (3) Generalized anxiety disorder: Code(s): F41.1 - Generalized anxiety disorder Category: Medical (4) GERD (gastroesophageal reflux disease): Code(s): K21.9 - Gastro-esophageal reflux disease without esophagitis Category: Medical Plan History of Present Illness The patient is a 49-year-old male presenting with multiple ongoing health concerns, including obesity management, recent food-related allergic reactions, and esophageal stricture management. Past assessments include a negative chest X-ray result from January and a non-concerning CTA of the head from March 2022. Previously, in 2021, blood work noted normal blood count, electrolytes, and renal function except for elevated LDL cholesterol, which was previously high. His hemoglobin A1c in August 2019 marked a slight increase at 5.8, suggesting he warrants regular monitoring for potential diabetes complications. He has reported previous treatment with balloon dilatation for esophageal s tricture as far back as 2003 and more recently. He's without a formal diagnosis of gastric ulcers but currently uses omeprazole for reflux symptom management. During a recent emergency visit, he received prednisone for an allergic food reaction. The patient has no significant surgical history, maintains a relatively active lifestyle by skiing in winter and biking in summer but indicates dietary challenges related to obesity and reiterates a non-use history for alcohol, smoking, or recreational drugs. Family medical history notes relevant includes a paternal history of skin cancer, maternal grandfather?s early myocardial infarction, and unspecified cardiac issues in the mother. Health Maintenance - Discussed importance of hydration. - Advised on healthy eating habits, emphasizing the need to avoid foods that can aggravate reflux. - Reviewed the importance of regular physical activity. - Recommended regular monitoring of blood sugar, cholesterol levels, and diabetes prevention strategies. - Suggested continuing follow-up for hypertension and hot spots. - Encouraged for vaccinations being up to date. - Educated on the importance of avoiding food triggers and managing reflux with medications. Social History - Employment: Works in a [place] [employer]. - Exercise: Skis in winter; bikes in summer. - Substance Use: Denies use of alcohol, tobacco, and recreational drugs. - Nutrition: Reports food as addiction, difficulties with dietary management related to obesity. - Family: Engages in biking activities with children. - Family Medical History: Paternal skin cancer; maternal grandfather of myocardial infarction. Review of Systems - General: Denies fever, nausea, vomiting. - Respiratory: Denies recent chest pain. - Gastrointestinal: Reports frequent urination; denies issues with bowel movements. - Neurological: No reported seizures or any neurological disorders. - Psychological: Reports generalized anxiety; mild insomnia. - Musculoskeletal: Denies swelling. Physical Exam Results - Imaging: Chest X-ray (January) - Negative. - Diagnostic Test: Head CTA (March 2022) - Unremarkable. - Laboratory: Hemoglobin A1c (August 2019) - 5.8; LDL cholesterol (2019) - 143; follow-up LDL 128. Plan Regular monitoring of fasting blood glucose and hemoglobin A1c is planned due to his past slightly elevated levels to prevent diabetes onset. Esophageal stricture management involves consistent use of omeprazole, avoiding identified reflux triggers, and food allergens. Reinforcement of regular activity and weight management is crucial in controlling obesity. Regular cholesterol evaluations are warranted due to previous elevations, and vitamin levels, specifically magnesium and , will be monitored considering his proton pump inhibitor use. The patient is advised to ensure up-to-date vaccinations and schedule a complete physical examination for comprehensive healthcare management. Patient was informed and verbally consented to the use of an ambient scribe for clinic note documentation during this visit. Discussion Notes I discussed the management and follow-up strategies with the patient, focusing primarily on controlling and monitoring blood glucose levels and preventing potential progression to diabetes. The importance of continuing omeprazole for reflux control, while avoiding reflux-promoting foods, was highlighted. We discussed maintaining healthy lifestyle choices, including diet and exercise, with attention to reducing weight and monitoring cholesterol. I informed the patient of the need to remain vigilant for any allergic reactions and avoid food triggers. Additionally, laboratory tests were scheduled to monitor vitamin levels given the extended use of omeprazole. Plans for a follow-up physical examination to ensure comprehensive care were discussed with the patient, emphasizing consistent health maintenance and preventive care strategies. Patient Instructions - Continue taking omeprazole regularly to manage reflux. - Follow a balanced diet; avoid known reflux triggers such as spicy foods and heavy meals before bedtime. - Engage in regular physical activity like skiing and biking to support weight management. - Monitor blood glucose and cholesterol levels as advised, and attend follow-up screenings. - Stay vigilant with avoiding known food allergens. - Schedule a complete physical examination to ensure comprehensive health andre gement. - Ensure all vaccinations are up to date. - Be mindful of hydration and limiting sugar and carbohydrate intake. Orders: Orders Comprehensive Met. Panel Today R73.02 - Impaired glucose tolerance (oral) Thyroid Stimulating Hormone Today R73.02 - Impaired glucose tolerance (oral) Lipid Panel Today E78.00 - Pure hypercholesterolemia, unspecified, R73.02 - Impaired glucose tolerance (oral) Hemoglobin A1c Today R73.02 - Impaired glucose tolerance (oral) Vitamin B12 and Folate Today R73.02 - Impaired glucose tolerance (oral) Complete Blood Count Auto Diff Today R73.02 - Impaired glucose tolerance (oral) Free T4 (Free Thyroxine) Today R73.02 - Impaired glucose tolerance (oral)
[2024-06-16 14:03] VITALS: BP 132/80
== END 2024-06-16 14:24 | disposition home or self-care (01) ==
LOC: HO.HMCH 13:30
PROVIDERS: PCP Internal Medicine; Visit Provider Internal Medicine
DX: R73.02 Impaired glucose tolerance (oral) (principal); E66.9 Obesity, unspecified; Z68.35 Body mass index [BMI] 35.0-35.9, adult; F41.1 Generalized anxiety disorder; K21.9 Gastro-esophageal reflux disease without esophagitis

== ENCOUNTER → 2024-06-16 13:30 | Outpatient (BNVA) | payer OTHER, SELFPAY | PROVIDERS: PCP Internal Medicine; Visit Provider Internal Medicine | DX: Z76.89 Persons encountering health services in other specified circumstances (principal); E66.9 Obesity, unspecified; R73.02 Impaired glucose tolerance (oral); F41.1 Generalized anxiety disorder; K21.9 Gastro-esophageal reflux disease without esophagitis | CPT/HCPCS: 96127 ==

== ENCOUNTER 2024-07-11 06:06 | Outpatient (REF) | payer OTHER, SELFPAY ==
--- OUTSIDE RECORDS SUMMARY | 2024-07-11 06:11 | XMS_ITS | Patient Health Record ---
Author Organization [facility] Address [address] [place] [address] Care Team Providers Care Apparel Sales Associate Name Role Phone Rosalino Perry MD Primary Care Provider Lalit Guerra Unavailable [phone] Allergies No Known Allergies Reason For Referral No Information Medications Medication SIG (Take, Route, Fr equency, Duration) Notes Start Date End Date Status Omeprazole 40 MG Oral Act tex ZyrTEC Active Budesonide 3 MG 3 capsules Orally On ce a day for 30 day(s) 01/24/2022 Active clonazePAM 1 MG TAKE 1 TABLET BY JOHN TH EVERY DAY NEEDED Oral for 30 for sleep Active Immunizations Vaccine Route Administration Date Status Comme nts Influenza Unknown 12/29/2021 Administered Social History Tobacco Use: Social History Observation Description Date Details (start date - stop date) Never Smoker NA - NA Tobacco Use/Smoking Question Answer Notes Patient is a nonsmoker Alcohol Screen Question Answer Notes Did you have a drink containing alcohol in the p ast year? No Points 0 Interpretation Negative Section Notes: Nonsmoker; no significant al cohol Nonsmoker; no significant al cohol Problems Problem Type SNOMED Code ICD Code Onset Dates Problem Status W/U Status Risk Notes Problem Colon cancer screening (652601298) Colon cancer screening (Z12.11) Active confirmed Problem 125132831 History of adenomatous polyp of colon (Z86.010) Active confirmed Problem Dysphagia (54517687) Dysphagia (R13.10) Active confirmed Problem Gastroesophageal reflux disease (246191121) Gastroesophageal reflux disease (K21.9) Active confirmed Problem Esophageal stricture (21974120) Esophageal stricture (K22.2) Active confirmed Problem Esophageal ring (36533704) Esophageal ring (K22.2) Active confirmed Problem Gastroesophageal reflux disease (072579021) GERD (gastroesophageal reflux disease) (K21.9) Active confirmed Plan Of Treatment Future Test Test Name Order Date UPPER GI ENDOSCOPY BALLOOON DILATION OF ESOPH 01/24/2022 COLONOSCOPY 01/24/2022 Insurance Providers Payer Name Payer Address Payer Phone Subscriber Number Group Number Insured Name Patient Relationship to Insured Coverage Start Date Coverage End Date [facility] [address] [place] [phone] [id number] KRUPA WONG Self - patient is the insured Medical (General) History Medical History History ICD Code Denies [place],DM,CVA,Lung disease,renal dise ase GERD with a distal esophagea l stricture dilated up to an 18 mm balloon in 2001 and 2003 Proximal esophageal rings that have not been dilated in the past. Upper endoscopy in March revealed a nonobstructing esophageal stricture at the gastroesophageal junction which was dilated with a balloon up to 20 mm. Biopsies from the proximal esophagus were negative for eosinophilic esophagitis. There was a small hiatal hernia noted as well. There was no esophagitis Screening colonoscopy in Mar revealed a single rectal tubular adenoma that was removed, as well as a couple of hyperplastic polyps Surgical History Surgery Date(Month/Year)
[2024-07-11 06:33] LABS: MANUAL DIFF FLAG NO
[2024-07-11 07:40] LABS: Basophils Percent Auto 0.5 % (0-2); Eosinophils Absolute Auto 0.2 X10*3/uL (0.0-0.4); Eosinophils Percent Auto 2.7 % (0-4); Hematocrit 42.2 % (42.0-52.0); Hemoglobin 14.5 g/dl (14.0-18.0); Imm Gran Abs Auto 0.01 X10*3/uL (0.00-0.03); Imm Gran Pct Auto 0.1 % (0.0-0.4); Lymphocytes Absolute Auto 2.6 X10*3/uL (1.2-4.9); Lymphocytes Percent Auto 34.8 % (20-40); Mean Corpuscular HGB Conc 34.4 g/dl (31.0-36.0); Mean Corpuscular Hemoglobin 28.3 pg (27.0-33.0); Mean Corpuscular Volume 82.4 fL (80.0-98.0); Mean Platelet Volume 10.5 fL (9.4-12.4); Monocytes Absolute Auto 0.5 X10*3/uL (0.1-1.2); Monocytes Percent Auto 7.2 % (2-11); Neutrophils Absolute Auto 4.1 x10*3/uL (2.0-8.3); Neutrophils Percent Auto 54.7 % (45-73); Platelet Count 238 X10*3/uL (160-400); Red Blood Count 5.12 X10*6/uL (4.60-5.80); Red Cell Distribution Width 13.1 % (11.0-16.0); White Blood Count 7.5 X10*3/uL (4.8-10.8)
[2024-07-11 07:47] LABS: Estimated Average Glucose 166 mg/dL; Hemoglobin A1C 217.3786 umol/L; Hemoglobin A1c % 7.4 % (<6.0); Total Hemoglobin (HGBA1C) 3784.1609 umol/L
[2024-07-11 08:18] LABS: Albumin Level 4.3 g/dL (3.5-5.0); Alkaline Phosphatase 77 U/L (39-117); Anion Gap 12 (12-20); Aspartate Amino Transferase 31 U/L (5-37); Bilirubin Total 0.7 mg/dL (0.0-1.0); Blood Urea Nitrogen 11 mg/dL (9-16); Calcium 9.2 mg/dL (8.4-10.2); Carbon Dioxide 27 mmol/L (22-29); Chloride 103 mmol/L (96-108); Cholesterol 190 mg/dL (<200); Estimated Glomerular Filt Rate > 60; Glucose Random 142 mg/dL (60-115); HDL Cholesterol 37 mg/dL (>40); LDL Cholesterol Calculated 138 mg/dL (<100); Sodium 138 mmol/L (135-145); Total Protein 7.2 g/dL (6.5-8.0); Triglycerides 76 mg/dL (<150)
[2024-07-11 08:35] LABS: Alanine Aminotransferase 56 U/L (0-40); Free T4 (Free Thyroxine) 0.88 ng/dL (0.71-1.85); Thyroid Stimulating Hormone 4.93 uIU/mL (0.32-4.0)
[2024-07-11 08:59] LABS: Folate 13.2 ng/mL (> or = 4.0); Vitamin B12 507 pg/mL (200-900)
== END 2024-07-11 06:07 | disposition home or self-care (01) ==
LOC: HO.LAB 06:06
PROVIDERS: PCP Internal Medicine; Visit Provider Internal Medicine
DX: R73.02 Impaired glucose tolerance (oral) (principal); E78.00 Pure hypercholesterolemia, unspecified
CPT/HCPCS: 36415; 80053; 80061; 82607; 82746; 83036; 84439; 84443; 85025

== ENCOUNTER 2024-07-21 15:15 | Outpatient (AMB) | payer OTHER, SELFPAY ==
--- OUTSIDE RECORDS SUMMARY | 2024-07-21 15:18 | XMS_ITS | Patient Health Record ---
Author Organization [facility] Address [address] [place] [address] Care Team Providers Care Coagulation Operator Name Role Phone Rosalino Perry MD Primary Care Provider Lalit Guerra Unavailable [phone] Allergies No Known Allergies Reason For Referral [...] Status Risk Notes Problem Colon cancer screening (065493907) Colon cancer screening (Z12.11) Active confirmed Problem 025586174 History of adenomatous polyp of colon (Z86.010) Active confirmed Problem Dysphagia (42096309) Dysphagia (R13.10) Active confirmed Problem Gastroesophageal reflux disease (570915701) Gastroesophageal reflux disease (K21.9) Active confirmed Problem Esophageal stricture (06587237) Esophageal stricture (K22.2) Active confirmed Problem Esophageal ring (94017036) Esophageal ring (K22.2) Active confirmed Problem Gastroesophageal reflux disease (350644938) GERD (gastroesophageal reflux disease) (K21.9) Active confirmed Plan Of Treatment Future Test Test Name Order Date UPPER GI ENDOSCOPY BALLOOON DILATION OF ESOPH 01/24/2022 COLONOSCOPY 01/24/2022 Insurance Providers Payer Name Payer Address Payer Phone Subscriber Number Group Number Insured Name Patient Relationship to Insured Coverage Start Date Coverage End Date [facility] [address] [place] [address] [id number] [id number] WONG Self - patient is the insured Medical (General) History Medical History History ICD Code Denies CA,DM,CVA,Lung disease,renal dise ase GERD with a distal [...]
[2024-07-21 15:24] VITALS: BP 138/88; PULSE 73; O2SAT 97; BMI 34.9
--- NOTE | 2024-07-21 15:24 | MHC.PC.OV ---
Vital Signs 07/21/24 15:24 Height 6 ft Weight 257 lb BMI 34.9 BP 138/88 Blood Pressure Location Lt brachial Position Sitting Pulse 73 Pulse Source Pulse Oximeter Pulse Oximetry (%) 97 Oxygen Delivery Method Room Air Intake Visit Reasons: Discuss lab results Allergies tree nut Allergy (Verified 07/21/24 15:25) Anaphylaxis Tobacco use date assessed: 06/16/24 Dental Screening Dental Screen Date: 06/16/24 [facility] Medical History (Updated 07/21/24 @ 16:10 by Bianka Reed MD) Impaired glucose tolerance Esophageal stricture Vasectomy evaluation GERD (gastroesophageal reflux disease) Surgical History (Updated 06/16/24 @ 13:44 by Nakia Shahid CMA) No pertinent past surgical history Family History (Updated 06/16/24 @ 14:10 by Bianka Reed MD) Father Skin cancer Diabetes Maternal Grandfather Myocardial infarct Other Substance abuse Social History (Updated 06/16/24 @ 13:44 by Nakia Shahid CMA) Household Members: Spouse and Children Housing: House Alcohol intake: never Patient Tobacco Use Status: Never used Tobacco Tobacco use type: Cigarette e-Cigarette/Vaping Use: Never Used Second Hand Smoke Exposure: No service: No Current occupational status: employed Current occupation: [employer] Cognitive needs: No Hearing needs: No Vision needs: Yes Questionnaire PHQ-9 Over the last 2 weeks, how often have you been bothered by any of the following problems? 1. Little interest or pleasure in doing things: not at all 2. Feeling down, depressed, or hopeless: not at all 3. Trouble falling or staying asleep, or sleeping too much: not at all 4. Feeling tired or having little energy: not at all 5. Poor appetite or overeating: not at all 6. Feeling bad about yourself - or that you are a failure or have let yourself or your family down: not at all 7. Trouble concentrating on things, such as reading the newspaper or watching television: not at all 8. Moving or speaking so slowly that other people could have noticed. Or the opposite - being so fidgety or restless that you have been moving around a lot more than usual: not at all 9. Thoughts that you would be better off or of hurting yourself in some way: not at all Total score: 0 Depression Screening Interpretation: Negative Depression Screening Done: Yes Source: Developed by Drs. Lalit Belcher, Sumaya Finn, Danial Dela Cruz and colleagues, with an educational juan a from nap- Naturally Attached Parents. Thrive Questionnaire Date Thrive assessed: 06/09/24 I am a: Patient What is your living situation today?: I have a steady place to live Within the past 12 months, did the food you bought not last and you didn't have the money to get more?: Never true Within the past 12 months, did you worry whether your food would run out before you got money to buy more?: Never true Do you have trouble paying for medicines?: No Do you have trouble getting transportation to medical appointments?: No Do you have trouble paying your heating and electricity bill?: No Do you have trouble taking care of your child, family member or friend?: No Do you have trouble with day-to-day activities such as bathing, preparing meals, shopping, managing finances, etc.?: No Are you currently unemployed and looking for a job?: No Are you interested in more education?: No Please select the resources that you would like help with: None Currently or been in a relationship where the following occur: I choose not to answer THRIVE Score: 0 ANNAMARIE-7 AMB Questionnaire ANNAMARIE-7 Date ANNAMARIE - 7 assessed: 06/16/24 Source: Developed by Drs. Lalit Belcher, Sumaya Finn, Danial Dela Cruz and colleagues, with an educational juan a from nap- Naturally Attached Parents. Physical exam (Primary Care) Vital Signs: Last Vital Signs Pulse 73 07/21/24 15:24 BP 138/88 07/21/24 15:24 Pulse Ox 97 07/21/24 15:24 Oxygen Delivery Method Room Air 07/21/24 15:24 BMI result Body Mass Index 34.9 Tobacco/Smoking Status: Tobacco use Status Tobacco use date assessed 06/16/24 07/21/24 15:28 Patient Tobacco Use Status Never used Tobacco 07/21/24 15:28 Tobacco use type Cigarette 07/21/24 15:28 e-Cigarette/Vaping Use Never Used 07/21/24 15:28 PHQ-9: PHQ-9 Score PHQ-9: Total score 0 07/21/24 16:00 Depression Screening Interpretation: Negative Thrive Assessment: Date of Thrive Assessment Date Thrive assessed 06/09/24 07/21/24 15:28 Currently or been in a relationship where the following occur: I choose not to answer Const General: alert; No acute distress Eyes Conjunctivae: conjunctivae normal Resp Auscultation: clear to auscultation bilaterally Cardio Rate: regular rate Rhythm: regular rhythm GI Inspection: Yes normal to inspection Extrem General: Yes normal to inspection and No edema Coding Level of Care Code Est Pt Level 4 (97499) Complex EM visit Add On G2211 Diagnoses Type 2 diabetes mellitus with hyperglycemia E11.65 Obesity (BMI 30-39.9) E66.9 GERD (gastroesophageal reflux disease) K21.9 Hypercholesterolemia E78.00 TSH elevation R79.89 LFT elevation R79.89 Assessment & Plan Assessment & Plan (1) Type 2 diabetes mellitus with hyperglycemia: Comment: my Eye Dr. Underwood Code(s): E11.65 - Type 2 diabetes mellitus with hyperglycemia Category: Medical Plan: Decrease the amount of carbohydrate intake, pasta, bread, rice and potatoes are all sugar and that is aside from all the sweet stuff, remember that fruits are good but they are Sweet also. Hemoglobin A1c goal of less than 6.5. (2) Obesity (BMI 30-39.9): Code(s): E66.9 - Obesity, unspecified Category: Medical Plan: Diet and exercise (3) GERD (gastroesophageal reflux disease): Code(s): K21.9 - Gastro-esophageal reflux disease without esophagitis Category: Medical Plan: Avoid the foods that causes that usually spicy foods, tomato products, juices, coffee, soda and foods that your sensitive to. After eating do not lie down, allow 3-4 hours before in lie down. And keep the head of bed above 30 degrees to avoid the acid from going up. (4) Hypercholesterolemia: Code(s): E78.00 - Pure hypercholesterolemia, unspecified Category: Medical Plan: Avoid fried foods, chicken skin, eggs, butter margarine, pastries and meat. Be it pork or beef they have a lot of cholesterol LDL goal of less than 100 and triglyceride of less than 150 (5) TSH elevation: Code(s): R79.89 - Other specified abnormal findings of blood chemistry Category: Medical Plan: Repeat testing requested (6) LFT elevation: Code(s): R79.89 - Other specified abnormal findings of blood chemistry Category: Medical Plan: Patient is advised to get an ultrasound of the abdomen, repeat blood test and hepatitis profile Plan History of Present Illness The patient is a 49-year-old male presenting for follow-up management of type 2 diabetes mellitus, initially diagnosed due to elevated fasting blood glucose levels. His recent blood glucose measure of 142 mg/dL and an A1c of 7.4% indicate insufficient glycemic control. Despite this, the patient does not exhibit typical hyperglycemic symptoms. Hypercholesterolemia is also present, with an LDL level of 138 mg/dL suggesting a heightened risk for cardiovascular issues. Alongside these concerns, the patient has elevated liver enzymes at 56 U/L, raising suspicion for liver-related pathologies, possibly amplified by obesity. The patient also has a mildly elevated TSH level at 4.93 mIU/L, though he does not report symptoms directly attributable to thyroid dysfunction. Overall, the patient's obesity, diet, and exercise habits are central to his current health concerns. Health Maintenance - Diet and exercise modifications were discussed for diabetes management and weight loss. - Repeat blood work and an abdominal ultrasound are scheduled for further assessment. - Annual eye examinations for diabetic retinal changes are recommended, with specific attention to diabetes-related eye health. - Review of ongoing lifestyle habits, including maintaining low dietary sugar intake and incorporating physical activity. Social History - The patient is mindful of dietary habits, primarily consuming water, but occasionally drinks diet sodas. - Exercise and adherence to dietary modifications such as reducing carbohydrate intake including pasta, bread, rice, potatoes, and sweet foods were discussed but the patient currently indicates low levels of physical activity. - The patient engages in routine eye care. Review of Systems - Eyes: Denies changes or issues; has recent ophthalmological evaluations. - Endocrine: Denies excessive thirst, urination, and hunger. - Gastrointestinal: Denies symptoms associated with liver dysfunction. - General: Denies any notable changes in weight recently. Physical Exam Results - Labs: Blood sugar level of 142 mg/dL, hemoglobin A1c of 7.4%, elevated liver enzyme at 56 U/L, LDL cholesterol of 138 mg/dL, and TSH level of 4.93 mIU/L. Plan 1. 5% and LDL cholesterol to below 100 mg/dL. Follow-up blood work is indicated in three months to reassess liver function and thyroid levels. An abdominal ultrasound will aid in evaluating the cause of liver enzyme elevation, with attention to potential fatty liver. The patient is encouraged to minimize carbohydrate intake and incorporate regular physical activity. His annual eye examination is up-to-date; however, specific attention to diabetes management and eye symptoms must continue.: Patient was informed and verbally consented to the use of an ambient scribe for clinic note documentation during this visit. Discussion Notes I discussed with the patient the significance of managing type 2 diabetes through lifestyle modifications aimed at diet and physical activity enhancements. The effectivity and reduced risks articulated include lowering the A1c to mitigate microvascular and macrovascular complications. I also highlighted the cardiovascular risks associated with elevated LDL cholesterol, stressing the importance of diet and possibly medications if levels do not decline through initial lifestyle interventions. During the visit, we discussed the potential etiology of the patient's elevated liver enzymes, suggesting possible fatty liver disease, with a recommendation for an abdominal ultrasound along and repeat lab work in three months. I also addressed the implications of mild thyroid dysfunction, though current levels indicate no immediate intervention other than monitoring. Finally, I stressed the necessity of regular blood glucose monitoring at home, explained the process, and offered a glucose meter for future consideration. Patient Instructions - Follow a low-carbohydrate diet and avoid sugary foods. - Increase physical activity; aim for regular daily exercise. - Schedule and complete an abdominal ultrasound to evaluate liver health. - Perform follow-up blood tests, including a hepatitis profile and thyroid function, in three months. - Attend annual ophthalmology exams and inform eye doctors of your diabetes diagnosis. - Monitor blood glucose levels as advised, noting any symptoms of hyperglycemia. Orders: Orders Hepatitis B,C Profile 3 Months - Other specified abnormal findings of blood chemistry Comprehensive Met. Panel 3 Months - Other specified abnormal findings of blood chemistry Free T4 (Free Thyroxine) Today - Other specified abnormal findings of blood chemistry Liver Panel 3 Months . - Other specified abnormal findings of blood chemistry Hemoglobin A1c 3 Months . - Other specified abnormal findings of blood chemistry US abdomen complete 3 Months - Other specified abnormal findings of blood chemistry Thyroid Stimulating Hormone Today - Other specified abnormal findings of blood chemistry
== END 2024-07-21 16:12 | disposition home or self-care (01) ==
LOC: HO.HMCH 15:16
PROVIDERS: PCP Internal Medicine; Visit Provider Internal Medicine
DX: E11.65 Type 2 diabetes mellitus with hyperglycemia (principal); E66.9 Obesity, unspecified; Z68.34 Body mass index [BMI] 34.0-34.9, adult; K21.9 Gastro-esophageal reflux disease without esophagitis; E78.00 Pure hypercholesterolemia, unspecified; R79.89 Other specified abnormal findings of blood chemistry

== ENCOUNTER → 2024-07-21 15:15 | Outpatient (BNVA) | payer OTHER, SELFPAY | PROVIDERS: PCP Internal Medicine; Visit Provider Internal Medicine ==

== ENCOUNTER 2024-10-17 06:00 | Outpatient (REF) | payer OTHER, SELFPAY ==
--- OUTSIDE RECORDS SUMMARY | 2024-10-17 06:03 | XMS_ITS | Patient Health Record ---
Author Organization [facility] Address [address] [place] [address] Care Team Providers Care Blast Setter Name Role Phone Vicky (RETIRED) Rosalino HOLDEN Primary Care Provide r Unavailable Lalit Simms Unavailable [phone] Allergies No Known Allergies Reason For Referral [...] Status Risk Notes Problem Colon cancer screening (963780887) Colon cancer screening (Z12.11) Active confirmed Problem 093625811 History of adenomatous polyp of colon (Z86.010) Active confirmed Problem Dysphagia (21065549) Dysphagia (R13.10) Active confirmed Problem Gastroesophageal reflux disease (221940837) Gastroesophageal reflux disease (K21.9) Active confirmed Problem Esophageal stricture (37212159) Esophageal stricture (K22.2) Active confirmed Problem Esophageal ring (45658130) Esophageal ring (K22.2) Active confirmed Problem Gastroesophageal reflux disease (045645488) GERD (gastroesophageal reflux disease) (K21.9) Active confirmed Plan Of Treatment Future Test Test Name Order Date UPPER GI ENDOSCOPY [place] DILATION OF ESOPH 01/24/2022 COLONOSCOPY 01/24/2022 Insurance Providers Payer Name Payer Address Payer Phone Subscriber Number Group Number Insured Name Patient Relationship to Insured Coverage Start Date Coverage End Date [facility] [address] [place] [phone] [id number] [id number] Self - patient is the insured Medical (General) History Medical History History ICD Code Denies [place],DM,CVA,Lung disease,renal dise ase GERD with a distal [...]
[2024-10-17 07:44] LABS: Hemoglobin A1C 200.0334 umol/L; Total Hemoglobin (HGBA1C) 3943.0654 umol/L
[2024-10-17 08:24] LABS: Alanine Aminotransferase 26 U/L (0-40); Albumin Level 4.7 g/dL (3.5-5.0); Alkaline Phosphatase 80 U/L (39-117); Anion Gap 11 (12-20); Aspartate Amino Transferase 20 U/L (5-37); Blood Urea Nitrogen 12 mg/dL (9-16); Calcium 9.1 mg/dL (8.4-10.2); Carbon Dioxide 26 mmol/L (22-29); Chloride 106 mmol/L (96-108); Estimated Glomerular Filt Rate > 60; Potassium 3.7 mmol/L (3.3-5.1); Sodium 139 mmol/L (135-145); Total Protein 7.5 g/dL (6.5-8.0)
[2024-10-17 08:43] LABS: Free T4 (Free Thyroxine) 0.95 ng/dL (0.71-1.85); Thyroid Stimulating Hormone 3.11 uIU/mL (0.32-4.0)
[2024-10-17 08:44] LABS: HBS Num1 2.88 mIU/mL (0-7.99); HBc Num1 0.07 S/CO (0.00-0.79); HBsAGNum1 0.41 S/CO (0.00-0.99); Hepatitis B Surface Antigen Negative (Negative); ~HepC Num1 0.15 S/CO (0.00-0.79); ~Hepatitis B Surface Antibody NONREACTIVE (Nonreactive); ~Hepatitis C Antibody Nonreactive (Nonreactive)
== END 2024-10-17 06:01 | disposition home or self-care (01) ==
LOC: HO.LAB 06:00
PROVIDERS: PCP Internal Medicine; Visit Provider Internal Medicine
DX: R79.89 Other specified abnormal findings of blood chemistry (principal); Z11.59 Encounter for screening for other viral diseases
CPT/HCPCS: 36415; 80053; 82248; 83036; 84439; 84443; 86704; 86706; 86803; 87340

== ENCOUNTER 2024-10-29 12:56 | Outpatient (AMB) | payer OTHER, SELFPAY ==
[2024-10-29 13:20] VITALS: BP 142/82; PULSE 76; TEMP 36.2; O2SAT 97; BMI 33.0
--- NOTE | 2024-10-29 13:20 | MHC.PC.OV ---
Vital Signs 10/29/24 13:20 10/29/24 13:33 Height 6 ft Weight 243 lb 6 oz BMI 33.0 BP 142/82 H 140/90 H Blood Pressure Location Lt brachial Lt brachial Position Sitting Sitting Pulse 76 Pulse Source Pulse Oximeter Temp 97.1 F Temp Source Temporal Artery Scan Pulse Oximetry (%) 97 Oxygen Delivery Method Room Air Intake Visit Reasons: Annual exam Allergies tree nut Allergy (Verified 10/29/24 13:22) Anaphylaxis Medication List - Last Reconciled 10/29/24 by Bianka Reed MD clonazepam 1 mg PO BEDTIME PRN fluticasone propionate 50 mcg/actuation 1 spray intranasal BID magnesium 250 mg PO DAILY montelukast (Singulair) 10 mg PO BEDTIME omeprazole 1 cap PO DAILY Tobacco use date assessed: 10/29/24 Dental Screening Dental Screen Date: 10/29/24 Did you have a dental visit in the last 12 months?: Yes Did you have a dental problem in the last 6 months where you did not have access to dental care?: No Was dental information given to patient?: Patient has dentist [facility] Medical History Impaired glucose tolerance Esophageal stricture Vasectomy evaluation GERD (gastroesophageal reflux disease) Surgical History No pertinent past surgical history Family History Father Skin cancer Diabetes Maternal Grandfather Myocardial infarct Other Substance abuse Social History Household Members: Spouse and Children Housing: House Alcohol intake: never Patient Tobacco Use Status: Never used Tobacco Tobacco use type: Cigarette e-Cigarette/Vaping Use: Never Used Second Hand Smoke Exposure: No service: No Current occupational status: employed Current occupation: [employer] Cognitive needs: No Hearing needs: No Vision needs: Yes Questionnaire PHQ-9 Over the last 2 weeks, how often have you been bothered by any of the following problems? 1. Little interest or pleasure in doing things: not at all 2. Feeling down, depressed, or hopeless: not at all 3. Trouble falling or staying asleep, or sleeping too much: not at all 4. Feeling tired or having little energy: not at all 5. Poor appetite or overeating: not at all 6. Feeling bad about yourself - or that you are a failure or have let yourself or your family down: not at all 7. Trouble concentrating on things, such as reading the newspaper or watching television: not at all 8. Moving or speaking so slowly that other people could have noticed. Or the opposite - being so fidgety or restless that you have been moving around a lot more than usual: not at all 9. Thoughts that you would be better off or of hurting yourself in some way: not at all Total score: 0 Depression Screening Interpretation: Negative Depression Screening Done: Yes Source: Developed by Drs. Lalit Belcher, Sumaya Finn, Danial Dela Cruz and colleagues, with an educational juan a from [employer]. Thrive Questionnaire Date Thrive assessed: 06/09/24 I am a: Patient What is your living situation today?: I have a steady place to live Within the past 12 months, did the food you bought not last and you didn't have the money to get more?: Never true Within the past 12 months, did you worry whether your food would run out before you got money to buy more?: Never true Do you have trouble paying for medicines?: No Do you have trouble getting transportation to medical appointments?: No Do you have trouble paying your heating and electricity bill?: No Do you have trouble taking care of your child, family member or friend?: No Do you have trouble with day-to-day activities such as bathing, preparing meals, shopping, managing finances, etc.?: No Are you currently unemployed and looking for a job?: No Are you interested in more education?: No Please select the resources that you would like help with: None Currently or been in a relationship where the following occur: I choose not to answer THRIVE Score: 0 AUDIT C Alcohol Use Questionnaire (AUDIT-C) 1. How often do you have a drink containing alcohol?: Never 3. How often do you have six or more drinks on one occasion?: Never Total Score: 0 ANNAMARIE-7 AMB Questionnaire ANNAMARIE-7 Date ANNAMARIE - 7 assessed: 06/16/24 Feeling nervous, anxious, or on edge: 0 = Not at all Not being able to stop or control worryin = Not at all Worrying too much about different things: 0 = Not at all Trouble relaxin = Not at all Being so restless that it is hard to sit still: 0 = Not at all Becoming easily annoyed or irritable: 0 = Not at all Feeling afraid as if something awful might happen: 0 = Not at all Total ANNAMARIE-7 score (0-4 normal; 5-9 mild; 10-14 moderate; 15-21 severe): 0 Source: Developed by Drs. Lalit Belcher, Sumaya Finn, Danial Dela Cruz and colleagues, with an educational juan a from [employer]. Review of Systems Const Denies poor appetite and Denies weakness Eyes Denies no additional complaints ENT Reports Normal hearing present, Denies dizziness, Denies nasal congestion, Denies tinnitus and Denies sore throat Card Denies chest pain, Denies syncope, Denies rapid heart rate and Denies dyspnea Resp Denies cough and Denies dyspnea GI Denies change in stool character, Reports constipation, Denies diarrhea, Denies nausea and Denies vomiting Denies dysuria and Denies urinary frequency Neuro Reports Normal hearing present, Denies confusion, Denies dizziness, Denies syncope and Denies weakness Psych Denies confusion Physical exam (Primary Care) Vital Signs: Last Vital Signs Temp 97.1 F 10/29/24 13:20 Pulse 76 10/29/24 13:20 BP 140/90 H 10/29/24 13:33 Pulse Ox 97 10/29/24 13:20 Oxygen Delivery Method Room Air 10/29/24 13:20 BMI result Body Mass Index 33.0 Tobacco/Smoking Status: Tobacco use Status Tobacco use date assessed 10/29/24 10/29/24 13:25 Patient Tobacco Use Status Never used Tobacco 10/29/24 13:25 Tobacco use type Cigarette 10/29/24 13:25 e-Cigarette/Vaping Use Never Used 10/29/24 13:25 PHQ-9: PHQ-9 Score PHQ-9: Total score 0 10/29/24 13:58 Depression Screening Interpretation: Negative Thrive Assessment: Date of Thrive Assessment Date Thrive assessed 06/09/24 10/29/24 13:25 Currently or been in a relationship where the following occur: I choose not to answer Const General: alert and awake; No confusion Orientation/consciousness: No confusion HENMT Head: Yes normocephalic Ears: external ears normal and TM's normal bilaterally Face and sinus: Yes normal facial exam Mouth: moist mucous membranes Throat: Yes tonsils normal Eyes Conjunctivae: conjunctivae normal Pupils: Equal, round and reactive pupils present and Pupil accommodation reflex normal Direct Ophthalmoscopy: normal light reflex Neck Neck: No lymphadenopathy Thyroid: Thyroid normal Chest Chest palpation & inspection: normal inspection of the chest Resp Effort & Inspection: normal respiratory effort and no audible wheezes Auscultation: clear to auscultation bilaterally, no crackles, no wheezes and lung sounds not diminished Cardio Rate: regular rate Rhythm: regular rhythm Peripheral pulses: radial pulses present and dorsalis pedis present GI Other: rectal visual negative Palpation (GI): no masses Auscultation: normal bowel sounds and normoactive bowel sounds Rectal Exam - Male: Yes deferred Male General Exam: Yes normal external exam Skin Other: pedal pulse and pin prick good General skin exam: no rashes or lesions noted Rashes: no rashes Neuro General: deep tendon reflexes 2+ bilaterally and No confusion Cranial nerves: Yes Equal, round and reactive pupils present, Yes Midline tongue present, Yes Normal hearing present and Yes Ability to bilaterally elevate shoulders present Cognition (Neuro): normal cognition Gait exam (Neuro): Normal gait present Motor exam (neuro): 5/5 motor strength present throughout Deep tendon reflexes (DTR's): Right brachioradialis reflex intensity grade: 2+, Left brachioradialis reflex intensity grade: 2+, Right patellar reflex intensity grade: 2+ and Left patellar reflex intensity grade: 2+ Extrem General: No edema Immunizations pneumoc 20-noa conj-dip cr(PF) 0.5 mL IM syringe Performing Provider: Bianka Reed MD [facility] Administered by: Nasra Khalil LPN on 10/29/24 13:58 Dose Route Admin Location Dispensed Lot Number Expiration Date [facility] Resin Filterer 0.5 mL IM Right Deltoid 0.5 mL [id number] 10/02/25 1434-8764-90 [employer] Total Dispensed Waste 0.5 mL 0 % VIS Given Date VIS Provided VIS Publication Date 10/29/24 Single Vaccine 24 Eligibility Eligibility Date Funding Source Not [facility] Eligible 10/29/24 Private Coding Level of Care Code Est Pt Prev Care 40-64y(01688) Diagnoses Annual physical exam Z00.00 Type 2 diabetes mellitus with hyperglycemia E11.65 Hypercholesterolemia E78.00 Obesity (BMI 30-39.9) E66.9 GERD (gastroesophageal reflux disease) K21.9 LFT elevation R79.89 Blood pressure elevated without history of HTN R03.0 Assessment & Plan Assessment & Plan (1) Annual physical exam: Code(s): Z00.00 - Encounter for general adult medical examination without abnormal findings Category: Medical Plan: Patient is advised to eat healthy, keep well hydrated, keep active and have adequate sleep. (2) Type 2 diabetes mellitus with hyperglycemia: Comment: my Eye Dr. Underwood Code(s): E11.65 - Type 2 diabetes mellitus with hyperglycemia Category: Medical Plan: Decrease the amount of carbohydrate intake, pasta, bread, rice and potatoes are all sugar and that is aside from all the sweet stuff, remember that fruits are good but they are Sweet also. Hemoglobin A1c goal of less than 6.5. Patient is reminded about the Ophthalmology exam is (3) Hypercholesterolemia: Code(s): E78.00 - Pure hypercholesterolemia, unspecified Category: Medical Plan: Avoid fried foods, chicken skin, eggs, butter margarine, pastries and meat. Be it pork or beef they have a lot of cholesterol LDL goal of less than 100 and triglyceride of less than 150 (4) Obesity (BMI 30-39.9): Code(s): E66.9 - Obesity, unspecified Category: Medical Plan: Diet and exercise (5) GERD (gastroesophageal reflux disease): Code(s): K21.9 - Gastro-esophageal reflux disease without esophagitis Category: Medical Plan: Avoid the foods that causes that usually spicy foods, tomato products, juices, coffee, soda and foods that your sensitive to. After eating do not lie down, allow 3-4 hours before in lie down. And keep the head of bed above 30 degrees to avoid the acid from going up. (6) LFT elevation: Code(s): R79.89 - Other specified abnormal findings of blood chemistry Category: Medical Plan: Patient is advised to have ultrasound of the abdomen as well as repeat testing. (7) Blood pressure elevated without history of HTN: Code(s): R03.0 - Elevated blood-pressure reading, without diagnosis of hypertension Category: Medical Plan History of Present Illness The patient is a 49-year-old male presenting for an annual physical examination and management of chronic conditions. The patient has a history of obesity, with a recent weight loss of 14 pounds noted since the last visit. He has been managing diabetes mellitus, with a recent hemoglobin A1c of 6.8, and aims to reduce it to below 6.5. The patient also has a history of gastroesophageal reflux disease (GERD), for which he takes omeprazole. He reports a long-standing issue with swallowing, which is managed with periodic esophageal dilation. Hypercholesterolemia is another concern, with the last LDL measurement at 138 mg/dL. The patient is working towards an LDL goal of less than 100 mg/dL. Hypertension was noted during the visit, with a blood pressure reading of 140/90 mmHg. The patient is advised to monitor blood pressure at home and reduce sodium intake. Preventative care measures include a colon cancer screening last performed in 2023 and a scheduled pneumonia vaccination. Health Maintenance - Colon cancer screening last performed in 2023 - Scheduled pneumonia vaccination - Advised to monitor blood pressure at home and reduce sodium intake - Encouraged to continue weight loss efforts and maintain a healthy diet Social History - Denies tobacco and alcohol use - Reports using magnesium supplements for relaxation and sleep improvement Review of Systems - General: Denies fever, chills, or weight gain - Cardiovascular: Denies chest pain, palpitations, or syncope - Respiratory: Denies dyspnea or cough - Gastrointestinal: Reports chronic dysphagia, denies nausea or vomiting - Genitourinary: Reports nocturia once or twice per night - Neurological: Denies dizziness or headaches Physical Exam General: Cooperative, healthy appearing, comfortable, no acute distress and well developed Orientation: Patient oriented x3 Limitations: No limitations Head: Normal to inspection Ears: Hearing grossly normal bilaterally Nose: Normal external nose present Face and sinus: Normal facial exam Eyes: Appearance normal, both eyes and all related structures Neck: Normal visual inspection and Yes full ROM Respiratory: Normal respiratory effort and able to speak in complete sentences. Clear to auscultation bilaterally Cardiovascular: Regular rate and rhythm. Normal S1 and S2 GI: Normal to inspection. Soft to palpation and nontender Skin: No rashes or lesions noted Neuro: Patient oriented x3 Extremities: Normal to inspection Results - Labs: Hemoglobin A1c 6.8, LDL 138 mg/dL, normal thyroid function, negative hepatitis profile - Tests: Scheduled ultrasound of the liver Plan Patient was informed and verbally consented to the use of an ambient scribe for clinic note documentation during this visit. 1. Obesity The patient has been advised to continue with weight loss efforts through diet and exercise, as recent weight loss of 14 pounds has been noted. 2. Diabetes Mellitus The patient's hemoglobin A1c is currently 6.8, with a target of less than 6.5. He is reminded to monitor blood sugar levels and maintain regular ophthalmology exams. 3. Gastroesophageal Reflux Disease (Gerd) The patient continues to manage GERD with omeprazole and is advised to monitor symptoms. 4. Hypercholesterolemia The patient is working towards an LDL goal of less than 100 mg/dL and is advised to follow a cholesterol-lowering diet. 5. Hypertension The patient is advised to monitor blood pressure at home, reduce sodium intake, and follow up with blood pressure logs. 6. Preventative Care Preventative measures include a scheduled pneumonia vaccination and a colon cancer screening last performed in 2023. Discussion Notes During the visit, we discussed the importance of managing chronic conditions such as diabetes, hypertension, and hypercholesterolemia. The patient was advised on lifestyle modifications, including diet and exercise, to aid in weight loss and improve overall health. We also reviewed the need for regular monitoring of blood pressure and blood sugar levels. Preventative care measures, including a pneumonia vaccination and colon cancer screening, were emphasized. The patient was informed about the importance of maintaining regular ophthalmology exams due to diabetes. Patient Instructions - Continue with weight loss efforts through diet and exercise. - Monitor blood pressure at home and keep a log of readings. - Reduce sodium intake to help manage blood pressure. - Follow up with scheduled pneumonia vaccination. - Maintain regular ophthalmology exams due to diabetes. Orders: Orders Hemoglobin A1c 3 Months E78.00 - Pure hypercholesterolemia, unspecified Pneumococcal 20 Immunization Today Z23 - Encounter for immunization Lipid Panel 3 Months E78.00 - Pure hypercholesterolemia, unspecified Comprehensive Met. Panel 3 Months E78.00 - Pure hypercholesterolemia, unspecified
--- OUTSIDE RECORDS SUMMARY | 2024-10-29 13:24 | XMS_ITS | Patient Health Record ---
Author Organization [facility] Address [address] [place] [address] Care Team Providers Care Manager Employment Name Role Phone Vicky (RETIRED) Rosalino HOLDEN Primary Care Provide r Unavailable Lalit Simms Unavailable [phone] Allergies No Known Allergies Reason For Referral [...] Status Risk Notes Problem Colon cancer screening (296850769) Colon cancer screening (Z12.11) Active confirmed Problem 151205918 History of adenomatous polyp of colon (Z86.010) Active confirmed Problem Dysphagia (59809701) Dysphagia (R13.10) Active confirmed Problem Gastroesophageal reflux disease (304923984) Gastroesophageal reflux disease (K21.9) Active confirmed Problem Esophageal stricture (94079547) Esophageal stricture (K22.2) Active confirmed Problem Esophageal ring (72372919) Esophageal ring (K22.2) Active confirmed Problem Gastroesophageal reflux disease (649902207) GERD (gastroesophageal reflux disease) (K21.9) Active confirmed Plan Of Treatment Future Test Test Name Order Date UPPER GI ENDOSCOPY BALLOOON DILATION OF ESOPH 01/24/2022 COLONOSCOPY 01/24/2022 Insurance Providers Payer Name Payer Address Payer Phone Subscriber Number Group Number Insured Name Patient Relationship to Insured Coverage Start Date Coverage End Date [facility] [address] [place] [address] [id number] KRUPA WONG Self - patient is the insured Medical (General) History Medical History History ICD Code Denies DE,DM,CVA,Lung disease,renal dise ase GERD with a distal [...]
[2024-10-29 13:33] VITALS: BP 140/90
== END 2024-10-29 14:01 | disposition home or self-care (01) ==
LOC: HO.HMCH 12:57
PROVIDERS: PCP Internal Medicine; Visit Provider Internal Medicine
DX: Z00.00 Encounter for general adult medical examination without abnormal findings (principal); E11.65 Type 2 diabetes mellitus with hyperglycemia; E66.9 Obesity, unspecified; Z68.33 Body mass index [BMI] 33.0-33.9, adult; E78.00 Pure hypercholesterolemia, unspecified; K21.9 Gastro-esophageal reflux disease without esophagitis; R79.89 Other specified abnormal findings of blood chemistry; R03.0 Elevated blood-pressure reading, without diagnosis of hypertension; Z23 Encounter for immunization

== ENCOUNTER → 2024-10-29 12:56 | Outpatient (BNVA) | payer OTHER, SELFPAY | PROVIDERS: PCP Internal Medicine; Visit Provider Internal Medicine | DX: Z00.00 Encounter for general adult medical examination without abnormal findings (principal); E11.65 Type 2 diabetes mellitus with hyperglycemia; E78.00 Pure hypercholesterolemia, unspecified; E66.9 Obesity, unspecified; K21.9 Gastro-esophageal reflux disease without esophagitis; R79.89 Other specified abnormal findings of blood chemistry; R03.0 Elevated blood-pressure reading, without diagnosis of hypertension; I10 Essential (primary) hypertension; Z23 Encounter for immunization; Z68.33 Body mass index [BMI] 33.0-33.9, adult | CPT/HCPCS: 90471; 90677; 96127 ==

== ENCOUNTER 2024-11-19 07:46 | Outpatient (REF) | payer OTHER, SELFPAY ==
--- NOTE | ~2024-11-19 | US_ITS ---
EXAMINATION: US ABDOMEN HISTORY: R79.89 - Other specified abnormal findings of blood chemistry TECHNIQUE: Real-time grayscale ultrasound imaging of the abdomen was performed and images were reviewed. COMPARISON: There are no prior studies available for comparison. FINDINGS: Liver: The right lobe of the liver measures 18.2 cm in size. The left lobe of the liver measures 11.1 cm in size. The liver demonstrates increased echotexture, consistent with steatosis. There is a 1.3 x 0.5 x 1.2 cm hypoechoic area adjacent to the gallbladder which likely represents focal fatty sparing. No focal mass or intrahepatic biliary ductal dilatation is identified. There is normal hepatopedal flow in the portal vein. Gallbladder and biliary tree: The gallbladder is unremarkable, without evidence of calculi, wall thickening, or pericholecystic fluid. There is no sonographic Santos sign. The common bile duct is normal in caliber measuring 3 mm. Kidneys: The right kidney measures 11.3 cm in length. The left kidney measures 11.2 cm in length. There is a 1.7 x 1.0 x 1.4 cm cystic structure containing a 10 mm calcification in the midportion of the right kidney. There is no hydronephrosis. The left kidney is unremarkable. Pancreas: The pancreatic head, neck, and body are unremarkable. The pancreatic tail is obscured by bowel gas. Spleen: The spleen is normal in size and contour, measuring 11.5 cm in length. Abdominal aorta and inferior vena cava: The visualized portions of the abdominal aorta and inferior vena cava are normal in caliber. There is no free fluid in the abdomen. US/US abdomen complete IMPRESSION: 1. Hepatomegaly and hepatic steatosis. Probable focal fatty sparing adjacent to the gallbladder. 2. 1.7 x 1.0 x 1.4 cm cystic structure in the right kidney containing a 10 mm calcification. Follow-up is recommended. Electronically signed by: Lalit Foy MD 11/19/2024 09:08 AM EDT
--- OUTSIDE RECORDS SUMMARY | 2024-11-19 07:50 | XMS_ITS | Patient Health Record ---
Author Organization [facility] Address [address] [place] [address] Care Team Providers Care Quality Auditor Name Role Phone Vicky (RETIRED) Rosalino HOLDEN Primary Care Provide r Unavailable Lalit Simms Unavailable [phone] Allergies No Known Allergies Reason For Referral [...] Status Risk Notes Problem Colon cancer screening (727847674) Colon cancer screening (Z12.11) Active confirmed Problem 523017158 History of adenomatous polyp of colon (Z86.010) Active confirmed Problem Dysphagia (23009455) Dysphagia (R13.10) Active confirmed Problem Gastroesophageal reflux disease (731450397) Gastroesophageal reflux disease (K21.9) Active confirmed Problem Esophageal stricture (80602405) Esophageal stricture (K22.2) Active confirmed Problem Esophageal ring (54185669) Esophageal ring (K22.2) Active confirmed Problem Gastroesophageal reflux disease (990025527) GERD (gastroesophageal reflux disease) (K21.9) Active confirmed Plan Of Treatment Future Test Test Name Order Date UPPER GI ENDOSCOPY BALLOOON DILATION OF ESOPH 01/24/2022 COLONOSCOPY 01/24/2022 Insurance Providers Payer Name Payer Address Payer Phone Subscriber Number Group Number Insured Name Patient Relationship to Insured Coverage Start Date Coverage End Date [facility] [address] [place] [address] [id number] KRUPA WONG Self - patient is the insured Medical (General) History Medical History History ICD Code Denies CT,DM,CVA,Lung disease,renal dise ase GERD with a distal [...]
== END 2024-11-19 07:47 | disposition home or self-care (01) ==
LOC: HO.US 07:46
PROVIDERS: PCP Internal Medicine; Visit Provider Internal Medicine
DX: R79.89 Other specified abnormal findings of blood chemistry (principal)
CPT/HCPCS: 76700

== ENCOUNTER → 2024-11-19 07:47 | Outpatient (BNV) | payer OTHER, SELFPAY | PROVIDERS: PCP Internal Medicine; Visit Provider Radiology Diagnostic Radiology | DX: R16.0 Hepatomegaly, not elsewhere classified (principal); K76.0 Fatty (change of) liver, not elsewhere classified | CPT/HCPCS: 76700 ==

== ENCOUNTER 2025-02-18 06:06 | Outpatient (REF) | payer OTHER, SELFPAY ==
--- OUTSIDE RECORDS SUMMARY | 2025-02-18 06:10 | XMS_ITS | Patient Health Record ---
Author Organization [facility] Address [address] [place] [address] Care Team Providers Care Glass Frame Fitter Name Role Phone Vicky (RETIRED) Rosalino HOLDEN Primary Care Provide r Unavailable Lalit Simms Unavailable [phone] Allergies No Known Allergies Reason For Referral No Information Medications Medication SIG (Take, Route, Frequency, Duration) Notes Start Date End Date Status Omeprazole 40 MG Capsule Delayed Release Oral Active ZyrTEC Active Budesonide 3 MG Capsule Delayed Release Particles 3 capsules Orally Once a day; Duration: 30 day(s) 01/24/2022 Active clonazePAM 1 MG Tablet TAKE 1 TABLET BY MOUTH EVERY DAY NEEDED Oral; Duration: 30 for sleep Active Immunizations Vaccine Route Administration Date Status Comme nts Influenza Unknown 12/29/2021 Administered Social History Tobacco Use: Social History Observation Description Date Details (start date - stop date) Never Smoker NA - NA Social History Drugs/Alcohol: Social Info Question Answer Notes Alcohol Screen Did you have a drink containing alcohol in the past year? 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 [facility] Notes: Nonsmoker; no significant al cohol Nonsmoker; no significant al cohol Problems Problem Type SNOMED Code ICD Code Onset Dates Problem Status W/U Status Risk Notes Problem Colon cancer screening (961658390) Colon cancer screening (Z12.11) Active confirmed Problem History of adenomatous polyp of colon (122360424) History of adenomatous polyp of colon (Z86.010) Active confirmed Problem Dysphagia (01372794) Dysphagia (R13.10) Active confirmed Problem Gastroesophageal reflux disease (178612568) Gastroesophageal reflux disease (K21.9) Active confirmed Problem Esophageal stricture (00146932) Esophageal stricture (K22.2) Active confirmed Problem Esophageal ring (44732348) Esophageal ring (K22.2) Active confirmed Problem Gastroesophageal reflux disease (715993449) GERD (gastroesophageal reflux disease) (K21.9) Active confirmed Plan Of Treatment Future Test Test Name Order Date UPPER GI ENDOSCOPY BALLOOON DILATION OF ESOPH 01/24/2022 COLONOSCOPY 01/24/2022 Insurance Providers Payer Name Payer Address Payer Phone Subscriber Number Group Number Insured Name Patient Relationship to Insured Coverage Start Date Coverage End Date [facility] [address] [place] [address] [id number] KRUPA WONG Self - patient is the [...]
[2025-02-18 07:39] LABS: Alanine Aminotransferase 31 U/L (0-40); Albumin Level 4.7 g/dL (3.5-5.0); Alkaline Phosphatase 78 U/L (39-117); Anion Gap 13 (12-20); Aspartate Amino Transferase 25 U/L (5-37); Blood Urea Nitrogen 14 mg/dL (9-16); Calcium 9.4 mg/dL (8.4-10.2); Carbon Dioxide 26 mmol/L (22-29); Chloride 103 mmol/L (96-108); Cholesterol 198 mg/dL (<200); Estimated Glomerular Filt Rate > 60; HDL Cholesterol 40 mg/dL (>40); Potassium 3.8 mmol/L (3.3-5.1); Sodium 138 mmol/L (135-145); Total Protein 7.4 g/dL (6.5-8.0); Triglycerides 103 mg/dL (<150)
== END 2025-02-18 06:07 ==
LOC: HO.LAB 06:06
PROVIDERS: PCP Internal Medicine; Visit Provider Internal Medicine
DX: Z13.1 Encounter for screening for diabetes mellitus (principal); E78.00 Pure hypercholesterolemia, unspecified
CPT/HCPCS: 36415; 80053; 80061; 83036

== ENCOUNTER 2025-03-02 13:13 | Outpatient (AMB) | payer OTHER, SELFPAY ==
[2025-03-02 13:17] VITALS: BP 132/68; PULSE 73; O2SAT 98; BMI 34.7
--- NOTE | 2025-03-02 13:17 | MHC.PC.OV ---
Vital Signs 03/02/25 13:17 Height 6 ft Weight 256 lb BMI 34.7 BP 132/68 Blood Pressure Location Lt brachial Position Sitting Pulse 73 Pulse Source Pulse Oximeter Pulse Oximetry (%) 98 Oxygen Delivery Method Room Air Intake Visit Reasons: follow up Allergies tree nut Allergy (Verified 03/02/25 13:17) Anaphylaxis Medication List - Last Reconciled 03/02/25 by Bianka Reed MD clonazepam 1 mg PO BEDTIME PRN fluticasone propionate 50 mcg/actuation 1 spray intranasal BID magnesium 250 mg PO DAILY montelukast (Singulair) 10 mg PO BEDTIME omeprazole 1 cap PO DAILY Tobacco use date assessed: 10/29/24 Dental Screening Dental Screen Date: 10/29/24 HPI HPI Comments History of Present Illness Details History of Present Illness The patient is a 49-year-old male with obesity, here for a follow-up visit. He was last seen in October 2024 and has experienced a 13-pound weight gain since. His past medical history is significant for gastroesophageal reflux disease, diabetes mellitus, and hypercholesterolemia. His diabetes is managed with diet control. A colonoscopy was completed in 2023. A liver ultrasound performed in November revealed hepatic steatosis and a right kidney cyst. Recent blood work from February 18 showed normal electrolytes and liver function. His blood sugar was 126 mg/dL, hemoglobin A1c was 6.8, and his LDL was elevated at 130 mg/dL. Health Maintenance - A colonoscopy was performed in 2023. - A follow-up ultrasound for the right renal cyst is scheduled for November 2024. - The patient was counseled on diet and exercise for management of high cholesterol, reflux, and hepatic steatosis. - The risk of hepatic steatosis progressing to cirrhosis if left uncontrolled was discussed. Social History - Reports a 13-pound weight gain. - Diet and exercise were discussed as part of the treatment plan. Results - Blood work from February 18 revealed a blood sugar of 126 mg/dL, hemoglobin A1c of 6.8, and LDL of 130 mg/dL. - Electrolytes and liver function tests were normal. - A liver ultrasound in November showed hepatic steatosis and a right kidney cyst. COUNT INCLUDES [facility] Medical History Impaired glucose tolerance Esophageal stricture Vasectomy evaluation GERD (gastroesophageal reflux disease) Surgical History No pertinent past surgical history Family History Father Skin cancer Diabetes Maternal Grandfather Myocardial infarct Other Substance abuse Social History Household Members: Spouse and Children Housing: House Alcohol intake: never Patient Tobacco Use Status: Never used Tobacco Tobacco use type: Cigarette e-Cigarette/Vaping Use: Never Used Second Hand Smoke Exposure: No service: No Current occupational status: employed Current occupation: [employer] Cognitive needs: No Hearing needs: No Vision needs: Yes Questionnaire Thrive Questionnaire Date Thrive assessed: 06/09/24 I am a: Patient What is your living situation today?: I have a steady place to live Within the past 12 months, did the food you bought not last and you didn't have the money to get more?: Never true Within the past 12 months, did you worry whether your food would run out before you got money to buy more?: Never true Do you have trouble paying for medicines?: No Do you have trouble getting transportation to medical appointments?: No Do you have trouble paying your heating and electricity bill?: No Do you have trouble taking care of your child, family member or friend?: No Do you have trouble with day-to-day activities such as bathing, preparing meals, shopping, managing finances, etc.?: No Are you currently unemployed and looking for a job?: No Are you interested in more education?: No Currently or been in a relationship where the following occur: I choose not to answer THRIVE Score: 0 ANNAMARIE-7 AMB Questionnaire ANNAMARIE-7 Date ANNAMARIE - 7 assessed: 06/16/24 Source: Developed by Drs. Lalit Belcher, Sumaya Finn, Danial Dela Cruz and colleagues, with an educational juan a from [employer]. Review of Systems Narrative Review of Systems Physical exam (Primary Care) Vital Signs: Last Vital Signs Pulse 73 03/02/25 13:17 BP 132/68 03/02/25 13:17 Pulse Ox 98 03/02/25 13:17 Oxygen Delivery Method Room Air 03/02/25 13:17 BMI result Body Mass Index 34.7 Tobacco/Smoking Status: Tobacco use Status Tobacco use date assessed 10/29/24 03/02/25 13:18 Patient Tobacco Use Status Never used Tobacco 03/02/25 13:18 Tobacco use type Cigarette 03/02/25 13:18 e-Cigarette/Vaping Use Never Used 03/02/25 13:18 Thrive Assessment: Date of Thrive Assessment Date Thrive assessed 06/09/24 03/02/25 13:18 Currently or been in a relationship where the following occur: I choose not to answer Narrative Physical Exam - Constitutional: Patient is noted to be obese. Const General: alert; No acute distress Eyes Conjunctivae: conjunctivae normal Resp Auscultation: clear to auscultation bilaterally Cardio Rate: regular rate Rhythm: regular rhythm GI Inspection: Yes normal to inspection Extrem General: Yes normal to inspection and No edema Immunizations Boostrix Tdap 2.5 Lf unit-8 mcg-5 Lf/0.5 mL intramuscular syringe Performing Provider: Bianka Reed MD [facility] Administered by: Sandy Weinberg CMA on 03/02/25 13:53 Dose Route Admin Location Dispensed Lot Number Expiration Date NDC [employer] 0.5 mL IM Right Deltoid 0.5 mL [id number] 08/15/27 [id number] [employer] Total Dispensed Waste 0.5 mL 0 % VIS Given Date VIS Provided VIS Publication Date 03/02/25 Single Vaccine 20 Eligibility Eligibility Date Funding Source Not [facility] Eligible 03/02/25 Private Coding Level of Care Code Est Pt Level 4 (33068) Add On Problem Visit Only Diagnoses Type 2 diabetes mellitus with hyperglycemia E11.65 Hypercholesterolemia E78.00 Obesity (BMI 30-39.9) E66.9 GERD (gastroesophageal reflux disease) K21.9 Hepatic steatosis K76.0 Renal cyst, right N28.1 Hypertension I10 Assessment & Plan Assessment & Plan (1) Type 2 diabetes mellitus with hyperglycemia: Comment: my Eye Dr. Underwood Code(s): E11.65 - Type 2 diabetes mellitus with hyperglycemia Category: Medical Plan: Decrease the amount of carbohydrate intake, pasta, bread, rice and potatoes are all sugar and that is aside from all the sweet stuff, remember that fruits are good but they are Sweet also. Hemoglobin A1c goal of less than 6.5. Patient is presently diet controlled hemoglobin A1c is not controlled (2) Hypercholesterolemia: Code(s): E78.00 - Pure hypercholesterolemia, unspecified Category: Medical Plan: Avoid fried foods, chicken skin, eggs, butter margarine, pastries and meat. Be it pork or beef they have a lot of cholesterol LDL goal of less than 100 and triglyceride of less than 150 blood work showing LDL high (3) Obesity (BMI 30-39.9): Code(s): E66.9 - Obesity, unspecified Category: Medical Plan: Diet and exercise (4) GERD (gastroesophageal reflux disease): Code(s): K21.9 - Gastro-esophageal reflux disease without esophagitis Category: Medical Plan: Avoid the foods that causes that usually spicy foods, tomato products, juices, coffee, soda and foods that your sensitive to. After eating do not lie down, allow 3-4 hours before in lie down. And keep the head of bed above 30 degrees to avoid the acid from going up. (5) Hepatic steatosis: Code(s): K76.0 - Fatty (change of) liver, not elsewhere classified Category: Medical Plan: Low-fat diet and exercise discussed about progression to cirrhosis if not controlled (6) Renal cyst, right: Comment: November 2024 Code(s): N28.1 - Cyst of kidney, acquired Category: Medical Plan: Will do a follow-up ultrasound for the kidney cyst (7) Hypertension: Code(s): I10 - Essential (primary) hypertension Category: Medical Plan Plan Patient was informed and verbally consented to the use of an ambient scribe for clinic note documentation during this visit. 1. Diabetes Mellitus The goal is a hemoglobin A1c of less than 6.5%. The patient's current hemoglobin A1c of 6.8 is not at goal, and he will continue with diet control. 2. Hypercholesterolemia The goals are an LDL less than 100 mg/dL and triglycerides less than 150 mg/dL. With his LDL currently high, a plan of diet and exercise was recommended. 3. Hepatic Steatosis A low-fat diet and exercise were recommended, and the patient was counseled that if not controlled, hepatic steatosis can progress to cirrhosis. 4. Gastroesophageal Reflux Disease (Gerd) A low-fat diet and exercise were recommended for management. 5. Right Renal Cyst A follow-up ultrasound will be performed in November 2024. Discussion Notes I discussed the patient's uncontrolled diabetes, noting his hemoglobin A1c of 6.8 is above the goal of less than 6.5%. We also reviewed his high LDL cholesterol, and I reinforced the goals of an LDL under 100 mg/dL and triglycerides under 150 mg/dL, emphasizing diet and exercise. For his reflux and hepatic steatosis, I recommended a low-fat diet and exercise, and educated him on the risk of progression to cirrhosis if the liver condition is not managed. A follow-up ultrasound for his kidney cyst is planned for November 2024. Patient Instructions - Continue to manage your diabetes with your diet. Your recent A1c shows your blood sugar is higher than our goal. - Focus on a low-fat diet and regular exercise to help lower your cholesterol, manage acid reflux, and improve your fatty liver condition. - We have scheduled a repeat ultrasound of your kidney for November 2024. Orders: Orders US renal BI Today N28.1 - Cyst of kidney, acquired Lipid Panel 3 Months E78.00 - Pure hypercholesterolemia, unspecified Complete Blood Count Auto Diff 3 Months E78.00 - Pure hypercholesterolemia, unspecified Hemoglobin A1c 3 Months E78.00 - Pure hypercholesterolemia, unspecified Microalbumin, Random (w Creat) Today E11.65 - Type 2 diabetes mellitus with hyperglycemia, E78.00 - Pure hypercholesterolemia, unspecified Creatinine Urine Today E11.65 - Type 2 diabetes mellitus with hyperglycemia, E78.00 - Pure hypercholesterolemia, unspecified TDaP Immunization Today Z23 - Encounter for immunization Aldost/Renin 3 Months I10 - Essential (primary) hypertension Comprehensive Met. Panel 3 Months E78.00 - Pure hypercholesterolemia, unspecified
--- OUTSIDE RECORDS SUMMARY | 2025-03-02 15:13 | XMS_ITS | Patient Health Record ---
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 Notes: Nonsmoker; no significant al cohol Nonsmoker; no significant al cohol Problems Problem Type SNOMED Code ICD Code Onset Dates Problem Status W/U Status Risk Notes Problem Colon cancer screening (367324532) Colon cancer screening (Z12.11) Active confirmed Problem History of adenomatous polyp of colon (039002118) History of adenomatous polyp of colon (Z86.010) Active confirmed Problem Dysphagia (34347556) Dysphagia (R13.10) Active confirmed Problem Gastroesophageal reflux disease (292340647) Gastroesophageal reflux disease (K21.9) Active confirmed Problem Esophageal stricture (32164213) Esophageal stricture (K22.2) Active confirmed Problem Esophageal ring (71466263) Esophageal ring (K22.2) Active confirmed Problem Gastroesophageal reflux disease (763533235) GERD (gastroesophageal reflux disease) (K21.9) Active confirmed Plan Of Treatment Future Test Test Name Order Date UPPER GI ENDOSCOPY [place] DILATION OF ESOPH 01/24/2022 COLONOSCOPY 01/24/2022 Insurance Providers Payer Name Payer Address Payer Phone Subscriber Number Group Number Insured Name Patient Relationship to Insured Coverage Start Date Coverage End Date [facility] [address] [place] [phone] [id number] KRUPA WONG Self - patient is the insured Medical (General) History Medical History History ICD Code Denies OK,DM,CVA,Lung disease,renal dise ase GERD with a distal [...]
== END 2025-03-02 13:58 | disposition home or self-care (01) ==
LOC: HO.HMCH 13:14
PROVIDERS: PCP Internal Medicine; Visit Provider Internal Medicine
DX: E11.65 Type 2 diabetes mellitus with hyperglycemia (principal); E78.00 Pure hypercholesterolemia, unspecified; E66.9 Obesity, unspecified; K21.9 Gastro-esophageal reflux disease without esophagitis; K76.0 Fatty (change of) liver, not elsewhere classified; N28.1 Cyst of kidney, acquired; I10 Essential (primary) hypertension; Z23 Encounter for immunization

== ENCOUNTER → 2025-03-02 13:13 | Outpatient (BNVA) | payer OTHER, SELFPAY | PROVIDERS: PCP Internal Medicine; Visit Provider Internal Medicine | DX: Z23 Encounter for immunization (principal); E11.65 Type 2 diabetes mellitus with hyperglycemia; E78.00 Pure hypercholesterolemia, unspecified; E66.9 Obesity, unspecified; K21.9 Gastro-esophageal reflux disease without esophagitis; K76.0 Fatty (change of) liver, not elsewhere classified; N28.1 Cyst of kidney, acquired; I10 Essential (primary) hypertension; Z68.34 Body mass index [BMI] 34.0-34.9, adult | CPT/HCPCS: 90471; 90715 ==